=== PATIENT | male | born 1950 | race Caucasian/White ===

== ENCOUNTER 2018-02-15 11:29 | Inpatient (IN) | payer OTHER ==
[2018-02-15] MEDS ORDERED: ACETAMINOPHEN 650 MG SUPP.RECT ONE ×2 (11:49→15:40)
[2018-02-15 12:01] VITALS: BMI 32.5
[2018-02-15 13:11] LABS: BASO % 1.2 % (0-2.0); EOS % 1.4 % (0-4.5); HEMATOCRIT 35.3 % (35.4-49); HEMOGLOBIN 11.5 GM/dL (11.7-16.9); LYMPH % 15.8 % (8-40); MCH 29.3 pg (25.7-33.7); MCHC 32.6 g/dl (32.0-35.9); MEAN CELL VOLUME 89.8 fl (80-96); MEAN PLT VOLUME 8.4 fl (7.5-11.1); MONO % 7.7 % (3.8-10.2); NEUT % 73.9 % (42.8-82.8); PLATELET COUNT 347 K/MM3 (134-434); RBC 3.93 M/mm3 (4.00-5.60); RDW 16.2 % (11.9-15.9); WHITE BLOOD COUNT 16.8 K/mm3 (4.0-10.0)
[2018-02-15 13:17] LABS: URINE APPEARANCE CLOUDY; URINE BILIRUBIN NEGATIVE (<2.0 mg/dL); URINE BLOOD 1+ (NEGATIVE); URINE COLOR DKYELLOW; URINE GLUCOSE (UA) NEGATIVE (NEGATIVE); URINE KETONE NEGATIVE (NEGATIVE); URINE NITRITE NEGATIVE (NEGATIVE)
[2018-02-15 13:21] LABS: EPI CELLS RARE /HPF (FEW); URINE BACTERIA RARE /hpf (NONE SEEN); URINE LEUK ESTERASE 3+ (NEGATIVE); URINE MUCUS RARE; URINE PROTEIN 2+ (NEGATIVE); YEAST FEW
[2018-02-15] MEDS ORDERED: PIPERACILLIN/TAZOB 3.375 GM/50 ML PRE-DOCKED IVPB ONE (13:26)
[2018-02-15 13:27] LABS: VENOUS PH 7.3 (7.32-7.42)
[2018-02-15 13:28] LABS: VENOUS PC02 56.4 mmHg (38-52); VENOUS PO2 39.5 mmHg (28-48)
[2018-02-15] MEDS: VANCOMYCIN 1,500 MG in DEXTROSE 5%-WATER - 500 ML IVPB ONE ×2 (13:28→14:41)
[2018-02-15 13:34] LABS: INR 1.07 (0.82-1.09); PROTHROMBIN TIME (PATIENT) 12.1 SEC (9.98-11.88)
[2018-02-15 13:36] LABS: ACTIVATED PTT 22.8 SECONDS (26.9-34.4)
--- NOTE | 2018-02-15 14:14 | EKG ---
Test Reason : Blood Pressure : / mmHG Vent. Rate : 087 BPM Atrial Rate : 087 BPM P-R Int : 142 ms QRS Dur : 102 ms QT Int : 380 ms P-R-T Axes : 034 -27 018 degrees QTc Int : 457 ms NORMAL SINUS RHYTHM LOW VOLTAGE QRS INFERIOR INFARCT , AGE UNDETERMINED ABNORMAL ECG NO PREVIOUS ECGS AVAILABLE Confirmed by ROSITA LOVE MD ([id number]) on 02/15/2018 2:14:28 PM Referred By: Confirmed By:ROSITA LOVE MD
[2018-02-15 14:30] LABS: ANION GAP 11 (8-16); BILIRUBIN,TOTAL 0.3 mg/dL (0.2-1.0); BLOOD UREA NITROGEN 48 mg/dL (7-18); CALCIUM 8.5 mg/dL (8.5-10.1); CHLORIDE 100 mmol/L (98-107); CO2 29 mmol/L (21-32); CREATININE 0.8 mg/dL (0.7-1.3); GLUCOSE,RANDOM 298 mg/dL (74-106); POTASSIUM 5.1 mmol/L (3.5-5.1); SGOT/AST 132 U/L (15-37); SODIUM 140 mmol/L (136-145); TOT PROT 6.8 g/dl (6.4-8.2)
[2018-02-15 14:39] LABS: ALK PHOS 198 U/L (45-117); SGPT/ALT 113 U/L (12-78)
[2018-02-15] MEDS ORDERED: PIPERACILLIN/TAZOB 3.375 GM 3.375 GM/50 ML BAG IVPB ONE (14:56)
[2018-02-15] MEDS ORDERED: SODIUM CHLORIDE 1,000 ML IV STA (15:20)
[2018-02-15] MEDS ORDERED: ACETAMINOPHEN 650 MG SUPP.RECT PR ONE (15:25)
--- NOTE | 2018-02-15 15:55 | PDOC ---
History of Present Illness - General History Source: Family, Snf Records Exam Limitations: Clinical Condition, Unresponsive <Jose Elias Valerio - Last Filed: 02/15/18 15:51> - General History Source: Family, Snf Records Exam Limitations: Clinical Condition, Unresponsive - History of Present Illness Initial Comments: 02/15/18 16:00 The patient is a 67 year old male with a significant PMH of respiratory failure (s/p trach and vent dependent), CVA, diabetes, HTN, hyperlipidemia, and seizures who presents to the emergency department from [facility] for evaluation of fever. The patient has been in [facility] for the past 3 weeks in the vent unit. The patient is unresponsive at baseline so history is limited. Allergies: NKA Past surgical history: Tracheotomy. Social history: No reported cigarette, alcohol, or drug use. PCP: Dr. Cotton Proxy: Carla Mi <Rashid Wu - Last Filed: 02/15/18 16:18> - General Chief Complaint: Respiratory Stated Complaint: FEVER Time Seen by Provider: 02/15/18 12:48 Past History - Past Medical History CVA: Yes COPD: No Diabetes: Yes GI Disorders: Yes HTN: Yes Hypercholesterolemia: Yes Seizures: Yes Other medical history: respiratory failure/trach/vent dependent - Suicide/Smoking/Psychosocial Hx Smoking History: Unknown if ever smoked <Jose Elias Valerio - Last Filed: 02/15/18 15:51> <Rashid Wu - Last Filed: 02/15/18 16:18> - Past Medical History Allergies/Adverse Reactions: Allergies Allergy/AdvReac Type Severity Reaction Status Date / Time No Known Allergies Allergy Verified 02/15/18 11:55 Home Medications: Ambulatory Orders Albuterol 2.5/Ipratropium 0.5 [Duoneb -] 1 amp IH QID 02/15/18 Insulin Lispro [Humalog] 100 unit SQ BID 02/15/18 Metoprolol Tartrate 12.5 mg GT DAILY 02/15/18 Phenytoin 200 mg GT BID 02/15/18 Review of Systems - Review of Systems Able to Perform ROS?: Yes Comments:: 02/15/18 16:00 GENERAL/CONSTITUTIONAL: (+) Fever. No chills. No weakness. HEAD, EYES, EARS, NOSE AND THROAT: No change in vision. No ear pain or discharge. No sore throat. CARDIOVASCULAR: No chest pain or shortness of breath. RESPIRATORY: No cough, wheezing, or hemoptysis. GASTROINTESTINAL: No nausea, vomiting, diarrhea or constipation. GENITOURINARY: No dysuria, frequency, or change in urination. MUSCULOSKELETAL: No joint or muscle swelling or pain. No neck or back pain. SKIN: No rash NEUROLOGIC: No headache, vertigo, loss of consciousness, or change in strength/ sensation. ENDOCRINE: No increased thirst. No abnormal weight change. HEMATOLOGIC/LYMPHATIC: No anemia, easy bleeding, or history of blood clots. ALLERGIC/IMMUNOLOGIC: No hives or skin allergy. <Rashid Wu - Last Filed: 02/15/18 16:18> *Physical Exam - Vital Signs Last Vital Signs Temp Pulse Resp BP Pulse Ox 102.4 F H 92 H 18 144/81 100 02/15/18 11:35 02/15/18 14:30 02/15/18 14:50 02/15/18 14:30 02/15/18 14:30 - Physical Exam Comments: 02/15/18 15:51 EXAMINATION CONSTITUTIONAL: Unresponsive, GCS-3; HEAD: Normocephalic; atraumatic EYES: Pupils are 2 mm, round, nonreactive bilaterally; ENMT: mm-dry; tongue-coated NECK: Supple; non-tender; no JVD CARD: Normal S1, S2; no murmurs, rubs, or gallops RESP: Normal chest excursion with respiration; breath sounds clear and equal bilaterally; no wheezes, rhonchi, or rales ABD: Soft, non-distended; non-tender; no palpable organomegaly, no palpable hernias; + feeding tube in the left upper quadrant; EXT: No deformity, no edema; distal pulses decreased at the DP/TP bilaterally; SKIN: Warm, dry, + approximately 2 cm hemorrhagic blister to the left axilla; + also noted stage I pressure ulcer to the right scapula; NEURO: Unresponsive, GCS-3 <Jose Elias Valerio - Last Filed: 02/15/18 15:51> - Vital Signs Last Vital Signs Temp Pulse Resp BP Pulse Ox 102.4 F H 92 H 18 144/81 100 02/15/18 11:35 02/15/18 14:30 02/15/18 14:50 02/15/18 14:30 02/15/18 14:30 <Rashid Wu - Last Filed: 02/15/18 16:18> Heart Score/ECG Review #1 02/15/18 16:18 Vent rate 87 bpm Normal sinus rhtyhm Low voltage QRS Inferior infarct, age undetermined Abnormal ECG <Rashid Wu - Last Filed: 02/15/18 16:18> ED Treatment Course - LABORATORY CBC & Chemistry Diagram: 02/15/18 12:30 02/15/18 13:56 - ADDITIONAL ORDERS Additional order review: Laboratory Results 02/15/18 02/15/18 02/15/18 13:56 13:56 13:42 PT with INR INR PTT (Actin FS) VBG pH POC VBG pCO2 POC VBG pO2 Mixed VBG HCO3 Sodium 140 Potassium 5.1 Chloride 100 Carbon Dioxide 29 Anion Gap 11 BUN 48 H Creatinine 0.8 Creat Clearance w eGFR > 60 Random Glucose 298 H Lactic Acid Calcium 8.5 Total Bilirubin 0.3 AST 132 H ALT 113 H Alkaline Phosphatase 198 H Creatine Kinase 158 Creatine Kinase Index 0.6 CK-MB (CK-2) < 1.000 Troponin I 0.02 Total Protein 6.8 Albumin 2.0 L Urine Color Urine Appearance Urine pH Ur Specific Melrose Urine Protein Urine Glucose (UA) Urine Ketones Urine Blood Urine Nitrite Urine Bilirubin Urine Urobilinogen Ur Leukocyte Esterase Urine WBC (Auto) Urine RBC (Auto) Ur Epithelial Cells Urine Bacteria Urine Mucus Urine Yeast Phenytoin 18.0 02/15/18 02/15/18 02/15/18 12:56 12:56 12:55 PT with INR 12.10 H INR 1.07 PTT (Actin FS) 22.8 L VBG pH 7.30 L POC VBG pCO2 56.4 H POC VBG pO2 39.5 Mixed VBG HCO3 26.7 H Sodium Potassium Chloride Carbon Dioxide Anion Gap BUN Creatinine Creat Clearance w eGFR Random Glucose Lactic Acid Calcium Total Bilirubin AST ALT Alkaline Phosphatase Creatine Kinase Creatine Kinase Index CK-MB (CK-2) Troponin I Total Protein Albumin Urine Color Dkyellow Urine Appearance Cloudy Urine pH 5.0 Ur Specific Melrose 1.021 Urine Protein 2+ H Urine Glucose (UA) Negative Urine Ketones Negative Urine Blood 1+ H Urine Nitrite Negative Urine Bilirubin Negative Urine Urobilinogen 2.0 Ur Leukocyte Esterase 3+ H Urine WBC (Auto) 654 Urine RBC (Auto) 15 Ur Epithelial Cells Rare Urine Bacteria Rare Urine Mucus Rare Urine Yeast Few Phenytoin 02/15/18 02/15/18 02/15/18 12:30 12:30 12:30 PT with INR INR PTT (Actin FS) VBG pH POC VBG pCO2 POC VBG pO2 Mixed VBG HCO3 Sodium Cancelled Potassium Cancelled Chloride Cancelled Carbon Dioxide Cancelled Anion Gap Cancelled BUN Cancelled Creatinine Cancelled Creat Clearance w eGFR Cancelled Random Glucose Cancelled Lactic Acid 2.3 H* Calcium Cancelled Total Bilirubin Cancelled AST Cancelled ALT Cancelled Alkaline Phosphatase Cancelled Creatine Kinase Creatine Kinase Index CK-MB (CK-2) Troponin I Cancelled Cancelled Total Protein Cancelled Albumin Cancelled Urine Color Urine Appearance Urine pH Ur Specific Melrose Urine Protein Urine Glucose (UA) Urine Ketones Urine Blood Urine Nitrite Urine Bilirubin Urine Urobilinogen Ur Leukocyte Esterase Urine WBC (Auto) Urine RBC (Auto) Ur Epithelial Cells Urine Bacteria Urine Mucus Urine Yeast Phenytoin 02/15/18 13:42 Gram Stain - Final Sputum - Endotrachea Suction/Ventilator 02/15/18 12:30 RBC 3.93 L MCV 89.8 MCHC 32.6 RDW 16.2 H MPV 8.4 Neutrophils % 73.9 Lymphocytes % 15.8 Monocytes % 7.7 Eosinophils % 1.4 Basophils % 1.2 - RADIOLOGY Radiology Studies Ordered: Category Date Time Status CHEST X-RAY PORTABLE* [RAD] Stat Radiology 02/15/18 12:56 Completed ABDOMEN US -LIMITED [US] Stat Ultrasound 02/15/18 15:21 Ordered - Medications Given in the ED: ED Medications Discontinued Medications Generic Name Dose Route Start Last Admin Trade Name Freq PRN Reason Stop Dose Admin Acetaminophen 650 mg 02/15/18 15:25 02/15/18 15:37 Tylenol Suppository - SC 02/15/18 15:26 650 mg ONCE ONE Administration Vancomycin HCl 1,500 mg/ 500 mls @ 250 mls/hr 02/15/18 13:26 02/15/18 14:41 Dextrose IVPB 02/15/18 15:25 250 mls/hr ONCE ONE Administration Protocol Piperacillin Sod/Tazobactam Sod 3.375 gm 02/15/18 13:26 02/15/18 14:54 Zosyn 3.375gm Ivpb (Pre-Docked) IVPB 02/15/18 13:27 3.375 gm ONCE ONE Administration <Jose Elias Valerio - Last Filed: 02/15/18 15:51> - LABORATORY CBC & Chemistry Diagram: 02/15/18 12:30 02/15/18 13:56 - ADDITIONAL ORDERS Additional order review: Laboratory Results 02/15/18 02/15/18 02/15/18 13:56 13:56 13:42 PT with INR INR PTT (Actin FS) VBG pH POC VBG pCO2 POC VBG pO2 Mixed VBG HCO3 Sodium 140 Potassium 5.1 Chloride 100 Carbon Dioxide 29 Anion Gap 11 BUN 48 H Creatinine 0.8 Creat Clearance w eGFR > 60 Random Glucose 298 H Lactic Acid Calcium 8.5 Total Bilirubin 0.3 AST 132 H ALT 113 H Alkaline Phosphatase 198 H Creatine Kinase 158 Creatine Kinase Index 0.6 CK-MB (CK-2) < 1.000 Troponin I 0.02 Total Protein 6.8 Albumin 2.0 L Urine Color Urine Appearance Urine pH Ur Specific Melrose Urine Protein Urine Glucose (UA) Urine Ketones Urine Blood Urine Nitrite Urine Bilirubin Urine Urobilinogen Ur Leukocyte Esterase Urine WBC (Auto) Urine RBC (Auto) Ur Epithelial Cells Urine Bacteria Urine Mucus Urine Yeast Phenytoin 18.0 02/15/18 02/15/18 02/15/18 12:56 12:56 12:55 PT with INR 12.10 H INR 1.07 PTT (Actin FS) 22.8 L VBG pH 7.30 L POC VBG pCO2 56.4 H POC VBG pO2 39.5 Mixed VBG HCO3 26.7 H Sodium Potassium Chloride Carbon Dioxide Anion Gap BUN Creatinine Creat Clearance w eGFR Random Glucose Lactic Acid Calcium Total Bilirubin AST ALT Alkaline Phosphatase Creatine Kinase Creatine Kinase Index CK-MB (CK-2) Troponin I Total Protein Albumin Urine Color Dkyellow Urine Appearance Cloudy Urine pH 5.0 Ur Specific Melrose 1.021 Urine Protein 2+ H Urine Glucose (UA) Negative Urine Ketones Negative Urine Blood 1+ H Urine Nitrite Negative Urine Bilirubin Negative Urine Urobilinogen 2.0 Ur Leukocyte Esterase 3+ H Urine WBC (Auto) 654 Urine RBC (Auto) 15 Ur Epithelial Cells Rare Urine Bacteria Rare Urine Mucus Rare Urine Yeast Few Phenytoin 02/15/18 02/15/18 02/15/18 12:30 12:30 12:30 PT with INR INR PTT (Actin FS) VBG pH POC VBG pCO2 POC VBG pO2 Mixed VBG HCO3 Sodium Cancelled Potassium Cancelled Chloride Cancelled Carbon Dioxide Cancelled Anion Gap Cancelled BUN Cancelled Creatinine Cancelled Creat Clearance w eGFR Cancelled Random Glucose Cancelled Lactic Acid 2.3 H* Calcium Cancelled Total Bilirubin Cancelled AST Cancelled ALT Cancelled Alkaline Phosphatase Cancelled Creatine Kinase Creatine Kinase Index CK-MB (CK-2) Troponin I Cancelled Cancelled Total Protein Cancelled Albumin Cancelled Urine Color Urine Appearance Urine pH Ur Specific Melrose Urine Protein Urine Glucose (UA) Urine Ketones Urine Blood Urine Nitrite Urine Bilirubin Urine Urobilinogen Ur Leukocyte Esterase Urine WBC (Auto) Urine RBC (Auto) Ur Epithelial Cells Urine Bacteria Urine Mucus Urine Yeast Phenytoin 02/15/18 13:42 Gram Stain - Final Sputum - Endotrachea Suction/Ventilator 02/15/18 12:30 RBC 3.93 L MCV 89.8 MCHC 32.6 RDW 16.2 H MPV 8.4 Neutrophils % 73.9 Lymphocytes % 15.8 Monocytes % 7.7 Eosinophils % 1.4 Basophils % 1.2 - Medications Given in the ED: ED Medications Discontinued Medications Generic Name Dose Route Start Last Admin Trade Name Freq PRN Reason Stop Dose Admin Acetaminophen 650 mg 02/15/18 15:25 02/15/18 15:37 Tylenol Suppository - SC 02/15/18 15:26 650 mg ONCE ONE Administration Vancomycin HCl 1,500 mg/ 500 mls @ 250 mls/hr 02/15/18 13:26 02/15/18 14:41 Dextrose IVPB 02/15/18 15:25 250 mls/hr ONCE ONE Administration Protocol Piperacillin Sod/Tazobactam Sod 3.375 gm 02/15/18 13:26 02/15/18 14:54 Zosyn 3.375gm Ivpb (Pre-Docked) IVPB 02/15/18 13:27 3.375 gm ONCE ONE Administration <Rashid Wu - Last Filed: 02/15/18 16:18> Medical Decision Making - Medical Decision Making 02/15/18 15:54 Patient is a frail-appearing 67-year-old male, with history of anoxic encephalopathy, vented and trached who presents with fever and increased tracheal secretions. Patient is hemodynamically stable. Will neal culture. We'll administer broad-spectrum antibiotics. We'll administer antipyretics and IV fluids. Will obtain right upper quadrant ultrasound to evaluate for abnormal LFTs. Will admit with pulmonary consult. <Jose Elias Valerio - Last Filed: 02/15/18 15:51> *DC/Admit/Observation/Transfer - Discharge Dispostion Admit: Yes <Jose Elias Valerio - Last Filed: 02/15/18 15:51> - Attestations Scribe Attestion: 02/15/18 16:00 Documentation prepared by Rashid Wu, acting as medical recruiter for Jose Elias Valerio MD. <Rashid Wu - Last Filed: 02/15/18 16:18> Diagnosis at time of Disposition: Urinary tract bacterial infections, Abnormal LFTs Pneumonia Qualifiers: Pneumonia type: due to unspecified organism Laterality: bilateral Lung location : unspecified part of lung Qualified Code(s): J18.9 - Pneumonia, unspecified organism - Discharge Dispostion Condition at time of disposition: Fair
[2018-02-15] MEDS: ALBUTEROL SO4 2.5/IPRATROPIUM 0.5 INH SOL 3 ML VIAL.NEB. NEB SCH (20:50)
[2018-02-15] MEDS: SODIUM CHLORIDE 0.45% 1,000 ML IV SCH (21:02)
[2018-02-15] MEDS: INSULIN SLIDING SCALE (NOVOLOG) 1 VIAL SQ SCH (21:21)
[2018-02-15] MEDS: HEPARIN NA (PORCINE) 5,000 UNITS/ML 1ML VIAL SQ SCH (21:21)
[2018-02-15] MEDS: PHENYTOIN 100 MG/4 ML U-D CUP GT SCH (22:51)
[2018-02-16] MEDS ORDERED: ACETAMINOPHEN 325 MG TABLET (FP) PO ONE (05:43)
[2018-02-16] MEDS ORDERED: ACETAMINOPHEN 650 MG SUPP.RECT PR ONE (05:49)
[2018-02-16] MEDS: INSULIN SLIDING SCALE (NOVOLOG) 1 VIAL SQ SCH ×4 (06:10→22:54)
[2018-02-16] MEDS: ALBUTEROL SO4 2.5/IPRATROPIUM 0.5 INH SOL 3 ML VIAL.NEB. NEB SCH ×4 (07:40→20:45)
[2018-02-16 07:51] LABS: BASO % 0.7 % (0-2.0); EOS % 1.6 % (0-4.5); HEMATOCRIT 27.4 % (35.4-49); LYMPH % 11.8 % (8-40); MCH 29.8 pg (25.7-33.7); MEAN CELL VOLUME 90.4 fl (80-96); MEAN PLT VOLUME 8.4 fl (7.5-11.1); MONO % 7.6 % (3.8-10.2); NEUT % 78.3 % (42.8-82.8); PLATELET COUNT 304 K/MM3 (134-434); RBC 3.03 M/mm3 (4.00-5.60); RDW 16.2 % (11.9-15.9); WHITE BLOOD COUNT 18.9 K/mm3 (4.0-10.0)
[2018-02-16 08:05] LABS: ALBUMIN 1.7 g/dl (3.4-5.0); ANION GAP 5 (8-16); BLOOD UREA NITROGEN 45 mg/dL (7-18); CALCIUM 7.2 mg/dL (8.5-10.1); CHLORIDE 104 mmol/L (98-107); CO2 28 mmol/L (21-32); CREATININE 0.7 mg/dL (0.7-1.3); GLUCOSE,RANDOM 225 mg/dL (74-106); MAGNESIUM 2.8 mg/dL (1.8-2.4); PHOSPHOROUS 3.9 mg/dL (2.5-4.9); POTASSIUM 4.5 mmol/L (3.5-5.1); SGOT/AST 90 U/L (15-37); SGPT/ALT 85 U/L (12-78); SODIUM 137 mmol/L (136-145)
[2018-02-16 08:09] LABS: ALK PHOS 155 U/L (45-117); BILIRUBIN,TOTAL 0.2 mg/dL (0.2-1.0); TOT PROT 5.8 g/dl (6.4-8.2)
[2018-02-16] MEDS ORDERED: PT OWN MED DRAWER 7, Y5N ONE ×4 (08:11→21:23)
--- NOTE | 2018-02-16 08:31 | PN ---
Progress Note, Physician Chief Complaint: ID Full consult dictated - Current Medication List Current Medications: Active Medications Albuterol/Ipratropium (Duoneb -) 1 amp NEB RQID [facility] Last Admin: 02/15/18 20:50 Dose: 1 amp Heparin Sodium (Porcine) (Heparin -) 5,000 unit SQ BID [facility] Last Admin: 02/15/18 21:21 Dose: 5,000 unit Sodium Chloride (1/2 Normal Saline) 1,000 mls @ 75 mls/hr IV ASDIR [facility] Last Admin: 02/15/18 21:02 Dose: 75 mls/hr Insulin Aspart (Novolog Vial Sliding Scale -) 1 vial SQ ACHS [facility] PRN Reason: Protocol Last Admin: 02/16/18 06:10 Dose: 5 units Metoprolol Tartrate (Lopressor -) 12.5 mg GT DAILY [facility] Phenytoin Sodium (Dilantin Oral Suspension -) 200 mg GT BID [facility] Last Admin: 02/15/18 22:51 Dose: 200 mg - Objective Vital Signs: Vital Signs Temperature 100.4 F H 02/16/18 07:42 Pulse Rate 88 02/16/18 06:00 Respiratory Rate 16 02/16/18 06:00 Blood Pressure 151/76 02/16/18 06:00 O2 Sat by Pulse Oximetry (%) 98 02/15/18 15:55 Constitutional: Yes: Other (Vent dependent) Neck: Yes: Other (Trach) Cardiovascular: Yes: S1, S2 Respiratory: Yes: WNL, Regular, CTA Bilaterally Gastrointestinal: Yes: Soft. No: Tenderness Genitourinary: Yes: Other (Gold) Edema: Yes (anasarca) Labs: CBC, BMP 02/16/18 07:25 02/16/18 07:25 INR, PTT INR 1.07 (0.82-1.09) 02/15/18 12:55 Problem List - Problems (1) UTI (urinary tract infection) Code(s): N39.0 - URINARY TRACT INFECTION, SITE NOT SPECIFIED (2) Abnormal LFTs Code(s): R94.5 - ABNORMAL RESULTS OF LIVER FUNCTION STUDIES (3) Fever Code(s): R50.9 - FEVER, UNSPECIFIED (4) Respiratory failure Code(s): J96.90 - RESPIRATORY FAILURE, UNSP, UNSP W HYPOXIA OR HYPERCAPNIA Assessment/Plan Microbiology 02/15/18 13:42 Sputum - Endotrachea Suction/Ventilator Gram Stain - Final Laboratory Tests 02/15/18 02/15/18 02/15/18 12:30 12:55 12:56 WBC 16.8 H Hgb 11.5 L Hct 35.3 L Plt Count 347 INR 1.07 BUN Creatinine Random Glucose Lactic Acid Total Bilirubin AST ALT Alkaline Phosphatase Ur Leukocyte Esterase 3+ H 02/15/18 02/15/18 02/16/18 13:56 19:30 07:25 WBC 18.9 H Hgb 9.0 L D Hct Plt Count 304 INR BUN 48 H Creatinine 0.8 Random Glucose 298 H Lactic Acid 1.7 Total Bilirubin 0.3 AST 132 H ALT Alkaline Phosphatase 198 H Ur Leukocyte Esterase 02/16/18 07:25 WBC Hgb Hct Plt Count INR BUN Creatinine Random Glucose Lactic Acid Total Bilirubin 0.2 D AST 90 H D ALT 85 H D Alkaline Phosphatase 155 H D Ur Leukocyte Esterase Assessment Fever with urinary tract infection Must consider possibility he might have passes a stone and or ? cholecysititis Respiratory failure Plan Ceftriaxone 1 gram daily Panculture HIDA scan
--- NOTE | 2018-02-16 09:22 | CONS ---
DATE OF CONSULTATION: DATE OF DICTATION: 02/16/2018 INFECTIOUS DISEASE CONSULTATION HISTORY OF PRESENT ILLNESS: This is a 67-year-old male from a longterm with tracheostomy and chronic ventilatory failure. I am asked to see him for evaluation of fever noted at the longterm. He has been on the ventilator unit in [facility] for about 3 weeks and is unresponsive, perhaps as a result of a prior CVA, indicated in his past medical history. PAST MEDICAL HISTORY: Status post CVA, ventilatory dependency, hypertension, hyperlipidemia and seizure disorder. MEDICATIONS: Albuterol, insulin, metoprolol, Dilantin. ALLERGIES: None known. SOCIAL HISTORY: No reported cigarette, alcohol or drug use. HIV status unknown. FAMILY HISTORY: Unobtainable. REVIEW OF SYSTEMS: Respiratory: Chronic ventilatory failure with tracheostomy. Cardiac: No history of chest pain, heart murmur, syncope. Gastrointestinal: No bleeding per rectum, diarrhea, vomiting. Genitourinary: Incontinent of urine. PHYSICAL EXAMINATION: General: The patient was unresponsive. Vital Signs: His temperature on admission was 102.4 and currently 100.4. Pulse 88, blood pressure 150/76, respirations 16. Neck: Supple, with a tracheostomy. Lungs: Bilateral breath sounds. No wheezing or rhonchi. Heart: S1, S2. Regular rhythm. No murmur, rub or gallop. Abdomen: Soft, nontender. No palpable organomegaly. PEG feeding tube. Extremities: Edema of the upper arms. Skin: Stage 1 pressure ulcer right scapula. A 2-cm hemorrhagic blister left axilla. DIAGNOSTIC STUDIES: White count 16.8, 18.9; hemoglobin 9.0; platelets 304; normal differential blood count. INR 1.07, BUN 45, creatinine 0.7, bilirubin 0.1. AST on admission 132, ALT 113, alkaline phosphatase 198. Chest x-ray was reviewed. It shows a tracheostomy with no clear-cut infiltrate seen. Ultrasound, limited study but shows a slightly thick-walled gallbladder with multiple stones. ASSESSMENT: A 67-year-old man with history of a stroke and chronic ventilatory failure, presents for evaluation of fever. Likely source includes the urinary tract. Additionally, elevated liver enzymes noted on admission, with a sonogram showing diffuse fatty infiltration. A secondary possibility includes cholecystitis and whether or not he could have passed a gallstone. RECOMMENDATIONS: For now, we will focus on treatment of the urinary tract with cefepime 2 g q.8 hours, pending blood and urine cultures. We will obtain a HIDA scan for possible cholecystitis. CHLOE NUNEZ M.D. [id number]
[2018-02-16] MEDS: METOPROLOL TARTRATE 25 MG TABLET (FP) GT SCH (09:35)
[2018-02-16] MEDS: HEPARIN NA (PORCINE) 5,000 UNITS/ML 1ML VIAL SQ SCH ×2 (09:38→21:58)
[2018-02-16] MEDS: CEFEPIME 2 GM in DEXTROSE 5%-WATER - 100 ML IVPB SCH ×2 (09:38→17:55)
[2018-02-16] MEDS: PHENYTOIN 100 MG/4 ML U-D CUP GT SCH ×2 (09:53→21:59)
[2018-02-16] MEDS: SODIUM CHLORIDE 0.45% 1,000 ML IV SCH (09:53)
[2018-02-16] MEDS ORDERED: CEFTRIAXONE 1 GM in DEXTROSE 5%-WATER - 50 ML IVPB SCH (10:00)
--- NOTE | 2018-02-16 10:52 | HP ---
Admitting History and Physical - Primary Care Physician PCP: Lisette Nettles - Admission Chief Complaint: FEVER/LETHARGY History of Present Illness: CHRONICALLY ILL PATIENT SENT FROM [facility] WITH FEVER/LETHARGY ON TRACH/VENT DEPENDENT. 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: CVA Pulmonary: Yes: O2 Dependent, Other - Smoking History Smoking history: Unknown if ever smoked Have you smoked in the past 12 months: No Home Medications - Allergies Allergies/Adverse Reactions: Allergies Allergy/AdvReac Type Severity Reaction Status Date / Time No Known Allergies Allergy Verified 02/15/18 11:55 - Home Medications Home Medications: Ambulatory Orders Albuterol 2.5/Ipratropium 0.5 [Duoneb -] 1 amp IH QID 02/15/18 Insulin Lispro [Humalog] 100 unit SQ BID 02/15/18 Metoprolol Tartrate 12.5 mg GT DAILY 02/15/18 Phenytoin 200 mg GT BID 02/15/18 Review of Systems - Review of Systems Constitutional: reports: Lethargy, Weakness Eyes: reports: No Symptoms HENT: reports: No Symptoms Neck: reports: No Symptoms Cardiovascular: reports: No Symptoms Respiratory: reports: Other Gastrointestinal: reports: No Symptoms Genitourinary: reports: Other Musculoskeletal: reports: Muscle Weakness Integumentary: reports: Other Neurological: reports: Pre-Existing Deficit, Weakness Endocrine: reports: Other Hematology/Lymphatic: reports: Other Psychiatric: reports: Other Physical Examination Vital Signs: Vital Signs Temperature 100.4 F H 02/16/18 07:42 Pulse Rate 88 02/16/18 06:00 Respiratory Rate 17 02/16/18 07:37 Blood Pressure 151/76 02/16/18 06:00 O2 Sat by Pulse Oximetry (%) 98 02/15/18 15:55 Constitutional: Yes: Moderate Distress Eyes: Yes: WNL HENT: Yes: WNL Neck: Yes: WNL Cardiovascular: Yes: WNL Respiratory: Yes: Mechanically Ventilated (TRACHEOSTOMY) Gastrointestinal: Yes: Other Renal/: Yes: Jackman Present Musculoskeletal: Yes: Muscle Weakness Extremities: Yes: WNL Edema: No Peripheral Pulses WNL: Yes Integumentary: Yes: WNL Wound/Incision: Yes: Clean/Dry Neurological: Yes: Pre-Existing Deficit, Weakness ...Motor Strength: LLE, RLE Psychiatric: Yes: Other Labs: CBC, BMP 02/16/18 07:25 02/16/18 07:25 Problem List - Problems (1) Abnormal LFTs Code(s): R94.5 - ABNORMAL RESULTS OF LIVER FUNCTION STUDIES (2) Fever Code(s): R50.9 - FEVER, UNSPECIFIED (3) Pneumonia Code(s): J18.9 - PNEUMONIA, UNSPECIFIED ORGANISM Qualifiers: Pneumonia type: due to unspecified organism Laterality: bilateral Lung location: unspecified part of lung Qualified Code(s): J18.9 - Pneumonia, unspecified organism (4) Respiratory failure Code(s): J96.90 - RESPIRATORY FAILURE, UNSP, UNSP W HYPOXIA OR HYPERCAPNIA Assessment/Plan IV ABX CULTURES ID AND PULM EVAL VENT SUPPORT 35% JACKMAN CHECK CX DVT PROPHYLAXIS
[2018-02-16] MEDS ORDERED: INSULIN (NOVOLOG) ASPART 100 UNITS/ML 10ML VIAL ONE (11:55)
--- NOTE | 2018-02-16 12:35 | CON.PULM ---
Consult Consult Specialty:: PULM/CCM Referred by:: LAZARUS - History of Present Illness Chief Complaint: FEVER History of Present Illness: 67 M, chronic respiratory failure (Trach / Vent dependent), CVA, DM, HTN, hyperlipidemia, and seizures. Ad[facility] via the ER from the [facility] due to fever. Patient is nota able to provide history. CXR: Multilobar infiltrates that are likely a combination of PNA/atelectasis/ effusions. Seen by ID and started on broad spectrum ABX. - History Source History Provided By: Medical Record Limitations to Obtaining History: Unresponsive - Past Medical History CV TECH: Yes: CVA Pulmonary: Yes: O2 Dependent, Other - Smoking History Smoking history: Unknown if ever smoked Have you smoked in the past 12 months: No Home Medications - Allergies Allergies/Adverse Reactions: Allergies Allergy/AdvReac Type Severity Reaction Status Date / Time No Known Allergies Allergy Verified 02/15/18 11:55 - Home Medications Home Medications: Ambulatory Orders Albuterol 2.5/Ipratropium 0.5 [Duoneb -] 1 amp IH QID 02/15/18 Insulin Lispro [Humalog] 100 unit SQ BID 02/15/18 Metoprolol Tartrate 12.5 mg GT DAILY 02/15/18 Phenytoin 200 mg GT BID 02/15/18 Review of Systems Unable to obtain ROS, reason: not able to provide Physical Exam Vital Sings: Vital Signs Temperature 100.4 F H 02/16/18 07:42 Pulse Rate 88 02/16/18 06:00 Respiratory Rate 18 02/16/18 11:47 Blood Pressure 151/76 02/16/18 06:00 O2 Sat by Pulse Oximetry (%) 98 02/15/18 15:55 Constitutional: Yes: No Distress, Obese, Other (Mechanically ventilated) Eyes: Yes: Conjunctiva Clear HENT: Yes: Atraumatic, Normocephalic Neck: Yes: Other (Trachesotomy intact ) Cardiovascular: Yes: Regular Rate and Rhythm Respiratory: Yes: Mechanically Ventilated, Rhonchi. No: Rales, Stridor, Wheezes ...Inspection: Yes: WNL ...Clubbing: No Gastrointestinal: Yes: Normal Bowel Sounds, Soft, Other (PEG ) Musculoskeletal: Yes: WNL Extremities: Yes: WNL Edema: No Peripheral Pulses WNL: Yes Integumentary: Yes: WNL Neurological: Yes: Unresponsive Labs: CBC, BMP 02/16/18 07:25 02/16/18 07:25 Imaging - Results Chest X-ray: Report Reviewed, Image Reviewed Problem List - Problems (1) Abnormal LFTs Code(s): R94.5 - ABNORMAL RESULTS OF LIVER FUNCTION STUDIES (2) Fever Code(s): R50.9 - FEVER, UNSPECIFIED (3) Pneumonia Code(s): J18.9 - PNEUMONIA, UNSPECIFIED ORGANISM Qualifiers: Pneumonia type: due to unspecified organism Laterality: bilateral Lung location: unspecified part of lung Qualified Code(s): J18.9 - Pneumonia, unspecified organism (4) Respiratory failure Code(s): J96.90 - RESPIRATORY FAILURE, UNSP, UNSP W HYPOXIA OR HYPERCAPNIA Assessment/Plan ABX per ID AC Mode of vent Biswas-culture including Sputum VTE prophylaxis Not a candidate for wean Will repeat CXR in a few days. (Do not feel CT is needed at this time) Will follow. Thank you. Dr Dodd
[2018-02-16] MEDS: ACETAMINOPHEN 650 MG/20.3 ML ORAL SOLUTION (CUPS) PO PRN (13:31)
[2018-02-17] MEDS ORDERED: PT OWN MED DRAWER 7, Y5N ONE ×3 (01:51→17:18)
[2018-02-17] MEDS: SODIUM CHLORIDE 0.45% 1,000 ML IV SCH ×2 (01:57→20:40)
[2018-02-17] MEDS: CEFEPIME 2 GM in DEXTROSE 5%-WATER - 100 ML IVPB SCH ×3 (01:57→17:35)
[2018-02-17] MEDS: INSULIN SLIDING SCALE (NOVOLOG) 1 VIAL SQ SCH ×4 (07:31→21:19)
[2018-02-17] MEDS: ALBUTEROL SO4 2.5/IPRATROPIUM 0.5 INH SOL 3 ML VIAL.NEB. NEB SCH ×4 (08:04→21:30)
[2018-02-17 08:30] LABS: ALBUMIN 1.7 g/dl (3.4-5.0); ALK PHOS 154 U/L (45-117); ANION GAP 13 (8-16); BILIRUBIN,TOTAL 0.5 mg/dL (0.2-1.0); BLOOD UREA NITROGEN 42 mg/dL (7-18); CALCIUM 7.9 mg/dL (8.5-10.1); CHLORIDE 102 mmol/L (98-107); CO2 24 mmol/L (21-32); CREATININE 0.6 mg/dL (0.7-1.3); GLUCOSE,RANDOM 181 mg/dL (74-106); SGPT/ALT 81 U/L (12-78); SODIUM 139 mmol/L (136-145); TOT PROT 6.1 g/dl (6.4-8.2)
[2018-02-17 08:42] LABS: POTASSIUM 5.2 mmol/L (3.5-5.1); SGOT/AST 119 U/L (15-37)
[2018-02-17 10:37] LABS: HEMATOCRIT 24.8 % (35.4-49); HEMOGLOBIN 8.2 GM/dL (11.7-16.9); MCH 29.5 pg (25.7-33.7); MCHC 33.1 g/dl (32.0-35.9); MEAN CELL VOLUME 89.4 fl (80-96); MEAN PLT VOLUME 7.6 fl (7.5-11.1); PLATELET COUNT 283 K/MM3 (134-434); RBC 2.77 M/mm3 (4.00-5.60); RDW 15.5 % (11.9-15.9); WHITE BLOOD COUNT 16.2 K/mm3 (4.0-10.0)
--- NOTE | 2018-02-17 10:38 | PN ---
Progress Note, Physician Chief Complaint: AWAKE APHASIA TRACH - Current Medication List Current Medications: Active Medications Acetaminophen (Tylenol Oral Solution -) 650 mg PO Q6H PRN PRN Reason: FEVER Last Admin: 02/16/18 13:31 Dose: 650 mg Albuterol/Ipratropium (Duoneb -) 1 amp NEB RQID [facility] Last Admin: 02/17/18 08:04 Dose: 1 amp Heparin Sodium (Porcine) (Heparin -) 5,000 unit SQ BID [facility] Last Admin: 02/16/18 21:58 Dose: 5,000 unit Sodium Chloride (1/2 Normal Saline) 1,000 mls @ 75 mls/hr IV ASDIR [facility] Last Admin: 02/17/18 01:57 Dose: 75 mls/hr Cefepime HCl 2 gm/ Dextrose 100 mls @ 200 mls/hr IVPB Q8H-IV [facility] PRN Reason: Protocol Last Admin: 02/17/18 01:57 Dose: 200 mls/hr Insulin Aspart (Novolog Vial Sliding Scale -) 1 vial SQ ACHS [facility] PRN Reason: Protocol Last Admin: 02/17/18 07:31 Dose: Not Given Metoprolol Tartrate (Lopressor -) 12.5 mg GT DAILY [facility] Last Admin: 02/16/18 09:35 Dose: 12.5 mg Phenytoin Sodium (Dilantin Oral Suspension -) 200 mg GT BID [facility] Last Admin: 02/16/18 21:59 Dose: 200 mg - Objective Vital Signs: Vital Signs Temperature 99.6 F 02/17/18 07:32 Pulse Rate 78 02/17/18 07:32 Respiratory Rate 16 02/17/18 07:32 Blood Pressure 130/68 02/17/18 07:32 O2 Sat by Pulse Oximetry (%) 100 02/16/18 21:00 Constitutional: Yes: Mild Distress Eyes: Yes: WNL HENT: Yes: WNL Neck: Yes: WNL Cardiovascular: Yes: WNL Respiratory: Yes: Mechanically Ventilated, Other (TRACHEOSTOMY) Gastrointestinal: Yes: Distention, Tenderness ...Rectal Exam: Yes: Other Genitourinary: Yes: Gold Present Musculoskeletal: Yes: Muscle Weakness Extremities: Yes: Other Edema: Yes Edema: LLE: Trace, RLE: Trace Peripheral Pulses WNL: Yes Integumentary: Yes: Other Wound/Incision: Yes: Dressing Dry and Intact, Other Neurological: Yes: Confusion, Pre-Existing Deficit, Unresponsive, Unsteady Gait , Weakness ...Motor Strength: LLE, RLE Psychiatric: Yes: Other Labs: CBC, BMP 02/17/18 07:00 INR, PTT INR 1.07 (0.82-1.09) 02/15/18 12:55 Problem List - Problems (1) Abnormal LFTs Code(s): R94.5 - ABNORMAL RESULTS OF LIVER FUNCTION STUDIES (2) Fever Code(s): R50.9 - FEVER, UNSPECIFIED (3) Pneumonia Code(s): J18.9 - PNEUMONIA, UNSPECIFIED ORGANISM Qualifiers: Pneumonia type: due to unspecified organism Laterality: bilateral Lung location: unspecified part of lung Qualified Code(s): J18.9 - Pneumonia, unspecified organism (4) Respiratory failure Code(s): J96.90 - RESPIRATORY FAILURE, UNSP, UNSP W HYPOXIA OR HYPERCAPNIA Assessment/Plan NPO GI WORKUP IN PROGRESS GI/ID CONSULTS APPRECIATED TRACH/VET SUPPORT CONTINUED IV ABX LFT TRANSAMINITIS LIKELY GALLBLADDER INFECTION/OBSTRUCTION IVF PPI PAIN CONTROL
--- NOTE | 2018-02-17 11:04 | CON.GI ---
Consult Consult Specialty:: GI Reason for Consultation:: elevated lier enzymes - History of Present Illness History of Present Illness: chart reviewed. Events noted 67M, chronic respiratory failure (Trach / Vent dependent), CVA, DM, HTN, hyperlipidemia, and seizures. Admitted via the ER from the SNF due to fever, increased tracheal secretions and possible UTI. CXR revealed multilobar infiltrates. On broad spectrum antibiotics. Noted to have mild cholestasis and transaminitis. Takes Dilantin among other medications. The patient is non-verbal. Hx from medical records. 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 Pulmonary: Yes: O2 Dependent, Other - Smoking History Smoking history: Unknown if ever smoked Have you smoked in the past 12 months: No Home Medications - Allergies Allergies/Adverse Reactions: Allergies Allergy/AdvReac Type Severity Reaction Status Date / Time No Known Allergies Allergy Verified 02/15/18 11:55 - Home Medications Home Medications: Ambulatory Orders Albuterol 2.5/Ipratropium 0.5 [Duoneb -] 1 amp IH QID 02/15/18 Insulin Lispro [Humalog] 100 unit SQ BID 02/15/18 Metoprolol Tartrate 12.5 mg GT DAILY 02/15/18 Phenytoin 200 mg GT BID 02/15/18 Family Disease History - Family Disease History Family History: Unremarkable Review of Systems Findings/Remarks: as per HPI, H&P Physical Exam-GI Vital Signs: Vital Signs Temperature 99.6 F 02/17/18 07:32 Pulse Rate 78 02/17/18 07:32 Respiratory Rate 16 02/17/18 07:32 Blood Pressure 130/68 02/17/18 07:32 O2 Sat by Pulse Oximetry (%) 100 02/16/18 21:00 Constitutional: Yes: No Distress, Calm Eyes: Yes: Conjunctiva Clear HENT: Yes: Other (tracheostomy) Cardiovascular: No: Bradycardia, Tachycardia Respiratory: Yes: Mechanically Ventilated, Other (tracheostomy, vent) Labs: CBC, BMP 02/17/18 09:39 02/17/18 07:00 INR, PTT INR 1.07 (0.82-1.09) 02/15/18 12:55 Microbiology 02/15/18 Unknown Urine - Urine - Catheterized Urine Culture - Preliminary Lactose Fermenting Neg Bacilli 02/15/18 13:42 Sputum - Endotrachea Suction/Ventilator Gram Stain - Final 02/15/18 13:42 Sputum - Endotrachea Suction/Ventilator Sputum Culture - Preliminary Beta Hemolytic Strep 02/15/18 12:30 Blood - Peripheral Venous Blood Culture - Preliminary NO GROWTH OBTAINED AFTER 24 HOURS, INCUBATION TO CONTINUE FOR 4 DAYS. 02/15/18 12:30 Blood - Peripheral Venous Blood Culture - Preliminary NO GROWTH OBTAINED AFTER 24 HOURS, INCUBATION TO CONTINUE FOR 4 DAYS. Urine Test Results Urine Color Dkyellow 02/15/18 12:56 Urine Appearance Cloudy 02/15/18 12:56 Urine pH 5.0 (5.0-8.0) 02/15/18 12:56 Ur Specific [place] 1.021 (1.001-1.035) 02/15/18 12:56 Urine Protein 2+ (NEGATIVE) H 02/15/18 12:56 Urine Glucose (UA) Negative (NEGATIVE) 02/15/18 12:56 Urine Ketones Negative (NEGATIVE) 02/15/18 12:56 Urine Blood 1+ (NEGATIVE) H 02/15/18 12:56 Urine Nitrite Negative (NEGATIVE) 02/15/18 12:56 Urine Bilirubin Negative (<2.0 mg/dL) 02/15/18 12:56 Ur Leukocyte Esterase 3+ (NEGATIVE) H 02/15/18 12:56 Ur Epithelial Cells Rare /HPF (FEW) 02/15/18 12:56 Urine Bacteria Rare /hpf (NONE SEEN) 02/15/18 12:56 Urine Mucus Rare 02/15/18 12:56 Hepatic Panel Total Bilirubin 0.5 mg/dL (0.2-1.0) D 02/17/18 07:00 AST 119 U/L (15-37) H D 02/17/18 07:00 ALT 81 U/L (12-78) H 02/17/18 07:00 Alkaline Phosphatase 154 U/L (45-117) H 02/17/18 07:00 Albumin 1.7 g/dl (3.4-5.0) L 02/17/18 07:00 CBCD WBC 16.2 K/mm3 (4.0-10.0) H 02/17/18 09:39 RBC 2.77 M/mm3 (4.00-5.60) L 02/17/18 09:39 Hgb 8.2 GM/dL (11.7-16.9) L 02/17/18 09:39 Hct 24.8 % (35.4-49) L 02/17/18 09:39 MCV 89.4 fl (80-96) 02/17/18 09:39 MCHC 33.1 g/dl (32.0-35.9) 02/17/18 09:39 RDW 15.5 % (11.9-15.9) 02/17/18 09:39 Plt Count 283 K/MM3 (134-434) 02/17/18 09:39 MPV 7.6 fl (7.5-11.1) 02/17/18 09:39 CMP Sodium 139 mmol/L (136-145) 02/17/18 07:00 Potassium 5.2 mmol/L (3.5-5.1) H 02/17/18 07:00 Chloride 102 mmol/L (98-107) 02/17/18 07:00 Carbon Dioxide 24 mmol/L (21-32) 02/17/18 07:00 Anion Gap 13 (8-16) 02/17/18 07:00 BUN 42 mg/dL (7-18) H 02/17/18 07:00 Creatinine 0.6 mg/dL (0.7-1.3) L 02/17/18 07:00 Creat Clearance w eGFR > 60 (>60) 02/17/18 07:00 Calcium 7.9 mg/dL (8.5-10.1) L 02/17/18 07:00 Total Bilirubin 0.5 mg/dL (0.2-1.0) D 02/17/18 07:00 AST 119 U/L (15-37) H D 02/17/18 07:00 ALT 81 U/L (12-78) H 02/17/18 07:00 Alkaline Phosphatase 154 U/L (45-117) H 02/17/18 07:00 Total Protein 6.1 g/dl (6.4-8.2) L 02/17/18 07:00 Albumin 1.7 g/dl (3.4-5.0) L 02/17/18 07:00 Imaging - Results Ultrasound: Report Reviewed ([id number] US/ABDOMEN US -LIMITED HISTORY PROVIDED: Elevated liver function tests. Real time examination of the abdomen demonstrates the following: The study is limited and was performed in a portable manner. The gallbladder is slightly thick walled and does contain multiple calculi. There is no evidence of intra or extrahepatic biliary duct dilatation. The comptometrist describes a negative Rodriguez's sign. If acute cholecystitis is clinically suspected, a follow-up HIDA scan may be warranted. The liver is enlarged measuring 20.4 cm in craniocaudad dimension. It is hyperechoic in texture consistent with diffuse fatty infiltration. No discrete intrahepatic masses are identified. Hepatopedal flow is documented within the main portal vein. The pancreas is poorly visualized due to overlying bowel gas. There is no evidence of hydronephrosis or acute abnormalities of the right kidney. There is no evidence of AAA. The IVC is patent. IMPRESSION: Limited study with cholelithiasis, hepatomegaly and diffuse fatty infiltration of the liver. Please see above discussion.) Problem List - Problems (1) Alkaline phosphatase elevation Code(s): R74.8 - ABNORMAL LEVELS OF OTHER SERUM ENZYMES (2) Cholestasis Code(s): K83.1 - OBSTRUCTION OF BILE DUCT (3) Abnormal LFTs Code(s): R94.5 - ABNORMAL RESULTS OF LIVER FUNCTION STUDIES Assessment/Plan The liver enzymes abnormality is likely chronic, mulifatorial and includes metabilic, drug, and acutely, infectious etiologies. ?Cholestasis of sepsis, ? phenytoin-related. r/o acute GB pathology Agree with HIDA. Abx as per ID Will follow and monitor daily liver chem./response to treating infection OK to restart previous diet, if HIDA is negative
[2018-02-17] MEDS: ACETAMINOPHEN 650 MG/20.3 ML ORAL SOLUTION (CUPS) PO PRN (11:44)
[2018-02-17] MEDS: HEPARIN NA (PORCINE) 5,000 UNITS/ML 1ML VIAL SQ SCH ×2 (11:45→21:15)
[2018-02-17] MEDS: METOPROLOL TARTRATE 25 MG TABLET (FP) GT SCH (11:45)
[2018-02-17] MEDS: PHENYTOIN 100 MG/4 ML U-D CUP GT SCH ×2 (11:45→21:15)
[2018-02-17] MEDS ORDERED: INSULIN (NOVOLOG) ASPART 100 UNITS/ML 10ML VIAL ONE (11:49)
[2018-02-17] MEDS ORDERED: VANCOMYCIN 1,000 MG in DEXTROSE 5%-WATER - 250 ML IVPB ONE (14:04)
--- NOTE | 2018-02-17 14:49 | PN ---
Progress Note, Physician History of Present Illness: PULMONARY POORLY RESPONSIVE ON VENT SUPPORT,AC MODE ,-RESP DISTRESS,FEBRILE T-100.3 - Current Medication List Current Medications: Active Medications Acetaminophen (Tylenol Oral Solution -) 650 mg PO Q6H PRN PRN Reason: FEVER Last Admin: 02/17/18 11:44 Dose: 650 mg Albuterol/Ipratropium (Duoneb -) 1 amp NEB RQID [facility] Last Admin: 02/17/18 11:46 Dose: 1 amp Heparin Sodium (Porcine) (Heparin -) 5,000 unit SQ BID [facility] Last Admin: 02/17/18 11:45 Dose: 5,000 unit Sodium Chloride (1/2 Normal Saline) 1,000 mls @ 75 mls/hr IV ASDIR [facility] Last Admin: 02/17/18 01:57 Dose: 75 mls/hr Cefepime HCl 2 gm/ Dextrose 100 mls @ 200 mls/hr IVPB Q8H-IV [facility] PRN Reason: Protocol Last Admin: 02/17/18 11:48 Dose: 200 mls/hr Vancomycin HCl 1,000 mg/ (Dextrose) 250 mls @ 200 mls/hr IVPB ONCE ONE Stop: 02/17/18 15:18 Insulin Aspart (Novolog Vial Sliding Scale -) 1 vial SQ ACHS [facility] PRN Reason: Protocol Last Admin: 02/17/18 11:49 Dose: 2 units Metoprolol Tartrate (Lopressor -) 12.5 mg GT DAILY [facility] Last Admin: 02/17/18 11:45 Dose: 12.5 mg Phenytoin Sodium (Dilantin Oral Suspension -) 200 mg GT BID [facility] Last Admin: 02/17/18 11:45 Dose: 200 mg - Objective Vital Signs: Vital Signs Temperature 100.3 F H 02/17/18 10:00 Pulse Rate 80 02/17/18 10:00 Respiratory Rate 16 02/17/18 14:23 Blood Pressure 128/70 02/17/18 10:00 O2 Sat by Pulse Oximetry (%) 100 02/16/18 21:00 Constitutional: Yes: Well Nourished, Other (POORLY RESPONSIVE) Eyes: Yes: WNL HENT: Yes: WNL Neck: Yes: Supple (TRACH) Cardiovascular: Yes: Regular Rate and Rhythm, S1, S2 Respiratory: Yes: Rhonchi (ANA RHONCHI) Gastrointestinal: Yes: Normal Bowel Sounds, Soft Extremities: Yes: WNL Edema: No Labs: CBC, BMP 02/17/18 09:39 02/17/18 07:00 INR, PTT INR 1.07 (0.82-1.09) 02/15/18 12:55 Assessment/Plan Problem List - Problems (1) Abnormal LFTs Code(s): R94.5 - ABNORMAL RESULTS OF LIVER FUNCTION STUDIES (2) Fever Code(s): R50.9 - FEVER, UNSPECIFIED (3) Pneumonia Code(s): J18.9 - PNEUMONIA, UNSPECIFIED ORGANISM Qualifiers: Pneumonia type: due to unspecified organism Laterality: bilateral Lung location: unspecified part of lung Qualified Code(s): J18.9 - Pneumonia, unspecified organism (4) Respiratory failure Code(s): J96.90 - RESPIRATORY FAILURE, UNSP, UNSP W HYPOXIA OR HYPERCAPNIA Assessment/Plan ABX per ID AC Mode of vent VTE prophylaxis Inhaled bronchodilators Not a candidate for wean Will repeat CXR in a few days. (Do not feel CT is needed at this time) DR SMITH
--- NOTE | 2018-02-17 16:33 | PN ---
Progress Note, Physician History of Present Illness: Poorly responsive Febrile WBC elevated BC GPCCL Urine c/s LF Sputum mixed - Current Medication List Current Medications: Active Medications Acetaminophen (Tylenol Oral Solution -) 650 mg PO Q6H PRN PRN Reason: FEVER Last Admin: 02/17/18 11:44 Dose: 650 mg Albuterol/Ipratropium (Duoneb -) 1 amp NEB RQID [facility] Last Admin: 02/17/18 11:46 Dose: 1 amp Heparin Sodium (Porcine) (Heparin -) 5,000 unit SQ BID [facility] Last Admin: 02/17/18 11:45 Dose: 5,000 unit Sodium Chloride (1/2 Normal Saline) 1,000 mls @ 75 mls/hr IV ASDIR [facility] Last Admin: 02/17/18 01:57 Dose: 75 mls/hr Cefepime HCl 2 gm/ Dextrose 100 mls @ 200 mls/hr IVPB Q8H-IV [facility] PRN Reason: Protocol Last Admin: 02/17/18 11:48 Dose: 200 mls/hr Insulin Aspart (Novolog Vial Sliding Scale -) 1 vial SQ ACHS [facility] PRN Reason: Protocol Last Admin: 02/17/18 11:49 Dose: 2 units Metoprolol Tartrate (Lopressor -) 12.5 mg GT DAILY [facility] Last Admin: 02/17/18 11:45 Dose: 12.5 mg Phenytoin Sodium (Dilantin Oral Suspension -) 200 mg GT BID [facility] Last Admin: 02/17/18 11:45 Dose: 200 mg - Objective Vital Signs: Vital Signs Temperature 98.9 F 02/17/18 14:40 Pulse Rate 72 02/17/18 14:40 Respiratory Rate 18 02/17/18 14:40 Blood Pressure 130/69 02/17/18 14:40 O2 Sat by Pulse Oximetry (%) 100 02/17/18 09:00 Constitutional: Yes: No Distress Cardiovascular: Yes: Regular Rate and Rhythm, S1, S2 Respiratory: Yes: Mechanically Ventilated Gastrointestinal: Yes: Normal Bowel Sounds, Soft. No: Tenderness Edema: Yes Labs: CBC, BMP 02/17/18 09:39 02/17/18 07:00 INR, PTT INR 1.07 (0.82-1.09) 02/15/18 12:55 Assessment/Plan UTI/ Possible sepsis secondary to UTI +BC GPCCL Chronic Respiratory failure CVA Await c/s Continue cefepime Add vancomycin
[2018-02-17] MEDS: VANCOMYCIN 1,000 MG in DEXTROSE 5%-WATER - 250 ML IVPB SCH (20:39)
[2018-02-18] MEDS: CEFEPIME 2 GM in DEXTROSE 5%-WATER - 100 ML IVPB SCH ×3 (01:40→17:34)
[2018-02-18] MEDS: VANCOMYCIN 1,000 MG in DEXTROSE 5%-WATER - 250 ML IVPB SCH ×4 (06:31→20:30)
[2018-02-18] MEDS: INSULIN SLIDING SCALE (NOVOLOG) 1 VIAL SQ SCH ×4 (06:34→21:47)
[2018-02-18] MEDS: ALBUTEROL SO4 2.5/IPRATROPIUM 0.5 INH SOL 3 ML VIAL.NEB. NEB SCH ×4 (08:13→21:50)
[2018-02-18] MEDS ORDERED: PT OWN MED DRAWER 7, Y5N ONE ×4 (08:21→18:32)
[2018-02-18 08:37] LABS: HEMATOCRIT 26.2 % (35.4-49); HEMOGLOBIN 8.6 GM/dL (11.7-16.9); MCH 29.9 pg (25.7-33.7); MCHC 32.9 g/dl (32.0-35.9); MEAN PLT VOLUME 8.2 fl (7.5-11.1); PLATELET COUNT 298 K/MM3 (134-434); RBC 2.88 M/mm3 (4.00-5.60); RDW 15.8 % (11.9-15.9); WHITE BLOOD COUNT 13.7 K/mm3 (4.0-10.0)
[2018-02-18 09:01] LABS: CHLORIDE 101 mmol/L (98-107); GLUCOSE,RANDOM 185 mg/dL (74-106); POTASSIUM 4.1 mmol/L (3.5-5.1); SODIUM 137 mmol/L (136-145)
[2018-02-18 09:35] LABS: ALBUMIN 1.6 g/dl (3.4-5.0); BLOOD UREA NITROGEN 35 mg/dL (7-18)
--- NOTE | 2018-02-18 10:15 | PN ---
Progress Note, Physician History of Present Illness: More responsive Temps down Afebrile WBC improved BC GPCCL Urine c/s LF Sputum mixed - Current Medication List Current Medications: Active Medications Acetaminophen (Tylenol Oral Solution -) 650 mg PO Q6H PRN PRN Reason: FEVER Last Admin: 02/17/18 11:44 Dose: 650 mg Albuterol/Ipratropium (Duoneb -) 1 amp NEB RQID [facility] Last Admin: 02/18/18 08:13 Dose: 1 amp Heparin Sodium (Porcine) (Heparin -) 5,000 unit SQ BID [facility] Last Admin: 02/17/18 21:15 Dose: 5,000 unit Sodium Chloride (1/2 Normal Saline) 1,000 mls @ 75 mls/hr IV ASDIR [facility] Last Admin: 02/17/18 20:40 Dose: 75 mls/hr Cefepime HCl 2 gm/ Dextrose 100 mls @ 200 mls/hr IVPB Q8H-IV [facility] PRN Reason: Protocol Last Admin: 02/18/18 01:40 Dose: 200 mls/hr Vancomycin HCl 1,000 mg/ (Dextrose) 250 mls @ 166.667 mls/hr IVPB Q12H [facility] Last Admin: 02/18/18 06:31 Dose: Not Given Vancomycin HCl 1,000 mg/ (Dextrose) 250 mls @ 166.667 mls/hr IVPB Q12H [facility] Last Admin: 02/18/18 08:34 Dose: 166.667 mls/hr Insulin Aspart (Novolog Vial Sliding Scale -) 1 vial SQ ACHS [facility] PRN Reason: Protocol Last Admin: 02/18/18 06:34 Dose: Not Given Metoprolol Tartrate (Lopressor -) 12.5 mg GT DAILY [facility] Last Admin: 02/17/18 11:45 Dose: 12.5 mg Phenytoin Sodium (Dilantin Oral Suspension -) 200 mg GT BID [facility] Last Admin: 02/17/18 21:15 Dose: 200 mg - Objective Vital Signs: Vital Signs Temperature 98.7 F 02/18/18 09:40 Pulse Rate 76 02/18/18 09:40 Respiratory Rate 16 02/18/18 09:40 Blood Pressure 148/76 02/18/18 09:40 O2 Sat by Pulse Oximetry (%) 100 02/17/18 22:00 Constitutional: Yes: No Distress Cardiovascular: Yes: Regular Rate and Rhythm, S1, S2 Respiratory: Yes: Mechanically Ventilated Gastrointestinal: Yes: Normal Bowel Sounds, Soft. No: Tenderness Edema: Yes Edema: LUE: 2+, RUE: 2+, LLE: 1+, RLE: 1+ Labs: CBC, BMP 02/18/18 07:00 02/18/18 07:00 INR, PTT INR 1.07 (0.82-1.09) 02/15/18 12:55 Assessment/Plan UTI/ Possible sepsis secondary to UTI +BC GPCCL Chronic Respiratory failure CVA Await final c/s Continue cefepime Add vancomycin
[2018-02-18] MEDS: METOPROLOL TARTRATE 25 MG TABLET (FP) GT SCH (10:22)
[2018-02-18] MEDS: PHENYTOIN 100 MG/4 ML U-D CUP GT SCH ×2 (10:23→21:48)
[2018-02-18] MEDS: HEPARIN NA (PORCINE) 5,000 UNITS/ML 1ML VIAL SQ SCH ×2 (10:24→21:46)
--- NOTE | 2018-02-18 10:44 | PN ---
Progress Note, Physician - Current Medication List Current Medications: Active Medications Acetaminophen (Tylenol Oral Solution -) 650 mg PO Q6H PRN PRN Reason: FEVER Last Admin: 02/17/18 11:44 Dose: 650 mg Albuterol/Ipratropium (Duoneb -) 1 amp NEB RQID [facility] Last Admin: 02/18/18 08:13 Dose: 1 amp Heparin Sodium (Porcine) (Heparin -) 5,000 unit SQ BID [facility] Last Admin: 02/18/18 10:24 Dose: 5,000 unit Sodium Chloride (1/2 Normal Saline) 1,000 mls @ 75 mls/hr IV ASDIR [facility] Last Admin: 02/17/18 20:40 Dose: 75 mls/hr Cefepime HCl 2 gm/ Dextrose 100 mls @ 200 mls/hr IVPB Q8H-IV [facility] PRN Reason: Protocol Last Admin: 02/18/18 10:40 Dose: 200 mls/hr Vancomycin HCl 1,000 mg/ (Dextrose) 250 mls @ 166.667 mls/hr IVPB Q12H [facility] Last Admin: 02/18/18 06:31 Dose: Not Given Vancomycin HCl 1,000 mg/ (Dextrose) 250 mls @ 166.667 mls/hr IVPB Q12H [facility] Last Admin: 02/18/18 08:34 Dose: 166.667 mls/hr Insulin Aspart (Novolog Vial Sliding Scale -) 1 vial SQ ACHS [facility] PRN Reason: Protocol Last Admin: 02/18/18 06:34 Dose: Not Given Metoprolol Tartrate (Lopressor -) 12.5 mg GT DAILY [facility] Last Admin: 02/18/18 10:22 Dose: 12.5 mg Phenytoin Sodium (Dilantin Oral Suspension -) 200 mg GT BID [facility] Last Admin: 02/18/18 10:23 Dose: 200 mg - Objective Vital Signs: Vital Signs Temperature 98.7 F 02/18/18 09:40 Pulse Rate 76 02/18/18 09:40 Respiratory Rate 16 02/18/18 10:31 Blood Pressure 148/76 02/18/18 09:40 O2 Sat by Pulse Oximetry (%) 100 02/17/18 22:00 Cardiovascular: Yes: S1, S2 Respiratory: Yes: Mechanically Ventilated Gastrointestinal: Yes: Normal Bowel Sounds, Soft, Other (feeding tube) Labs: CBC, BMP 02/18/18 07:00 02/18/18 07:00 INR, PTT INR 1.07 (0.82-1.09) 02/15/18 12:55 Problem List - Problems (1) Abnormal LFTs Assessment/Plan: monitor w/u in progress Code(s): R94.5 - ABNORMAL RESULTS OF LIVER FUNCTION STUDIES (2) Pneumonia Assessment/Plan: iv abx cultures pulm and id on board Code(s): J18.9 - PNEUMONIA, UNSPECIFIED ORGANISM Qualifiers: Pneumonia type: due to unspecified organism Laterality: bilateral Lung location: unspecified part of lung Qualified Code(s): J18.9 - Pneumonia, unspecified organism (3) Respiratory failure Assessment/Plan: vent setting per pulm Code(s): J96.90 - RESPIRATORY FAILURE, UNSP, UNSP W HYPOXIA OR HYPERCAPNIA (4) Diabetes Assessment/Plan: bgm with coverage Code(s): E11.9 - TYPE 2 DIABETES MELLITUS WITHOUT COMPLICATIONS (5) Anemia Assessment/Plan: monitor Code(s): D64.9 - ANEMIA, UNSPECIFIED
[2018-02-18] MEDS: SODIUM CHLORIDE 0.45% 1,000 ML IV SCH ×2 (12:57→18:46)
--- NOTE | 2018-02-18 13:14 | PN ---
Progress Note (short form) - Note Progress Note: PULMONARY Vented, poorly responsive. Fever curve trending down. Last Vital Signs Temp Pulse Resp BP Pulse Ox 98.7 F 76 16 148/76 100 02/18/18 09:40 02/18/18 09:40 02/18/18 10:31 02/18/18 09:40 02/17/18 22:00 Gen: vented, poorly responsive Heart: RRR Lung: decreased breath sounds at the bases Abd: soft, nontender Ext: no edema CBC, BMP 02/18/18 07:00 02/18/18 07:00 Active Medications Acetaminophen (Tylenol Oral Solution -) 650 mg PO Q6H PRN PRN Reason: FEVER Last Admin: 02/17/18 11:44 Dose: 650 mg Albuterol/Ipratropium (Duoneb -) 1 amp NEB RQID [facility] Last Admin: 02/18/18 12:34 Dose: 1 amp Heparin Sodium (Porcine) (Heparin -) 5,000 unit SQ BID [facility] Last Admin: 02/18/18 10:24 Dose: 5,000 unit Sodium Chloride (1/2 Normal Saline) 1,000 mls @ 75 mls/hr IV ASDIR [facility] Last Admin: 02/18/18 12:57 Dose: 75 mls/hr Cefepime HCl 2 gm/ Dextrose 100 mls @ 200 mls/hr IVPB Q8H-IV [facility] PRN Reason: Protocol Last Admin: 02/18/18 10:40 Dose: 200 mls/hr Vancomycin HCl 1,000 mg/ (Dextrose) 250 mls @ 166.667 mls/hr IVPB Q12H [facility] Last Admin: 02/18/18 06:31 Dose: Not Given Vancomycin HCl 1,000 mg/ (Dextrose) 250 mls @ 166.667 mls/hr IVPB Q12H [facility] Last Admin: 02/18/18 08:34 Dose: 166.667 mls/hr Insulin Aspart (Novolog Vial Sliding Scale -) 1 vial SQ ACHS [facility] PRN Reason: Protocol Last Admin: 02/18/18 12:59 Dose: 5 units Metoprolol Tartrate (Lopressor -) 12.5 mg GT DAILY [facility] Last Admin: 02/18/18 10:22 Dose: 12.5 mg Phenytoin Sodium (Dilantin Oral Suspension -) 200 mg GT BID [facility] Last Admin: 02/18/18 10:23 Dose: 200 mg A/P Chronic Respiratory Failure h/o CVA Anoxic Encephalopathy UTI Pneumonia Sepsis r/o Bacteremia - continue antibiotics - f/u cultures - enteral feeds - poor candidate for weaning due to mental status - DVT prophylaxis
[2018-02-18 14:46] LABS: ALK PHOS 145 U/L (45-117); ANION GAP 6 (8-16); BILIRUBIN,TOTAL 0.2 mg/dL (0.2-1.0); CALCIUM 7.5 mg/dL (8.5-10.1); CO2 22 mmol/L (21-32); CREATININE 0.5 mg/dL (0.7-1.3); SGOT/AST 78 U/L (15-37); SGPT/ALT 71 U/L (12-78); TOT PROT 5.4 g/dl (6.4-8.2)
[2018-02-19] MEDS: CEFEPIME 2 GM in DEXTROSE 5%-WATER - 100 ML IVPB SCH ×2 (02:27→12:50)
[2018-02-19] MEDS: VANCOMYCIN 1,000 MG in DEXTROSE 5%-WATER - 250 ML IVPB SCH ×4 (06:13→21:05)
[2018-02-19] MEDS: INSULIN SLIDING SCALE (NOVOLOG) 1 VIAL SQ SCH ×4 (06:16→21:07)
[2018-02-19] MEDS: ALBUTEROL SO4 2.5/IPRATROPIUM 0.5 INH SOL 3 ML VIAL.NEB. NEB SCH ×4 (08:09→20:00)
[2018-02-19] MEDS ORDERED: PT OWN MED DRAWER 7, Y5N ONE (08:21)
--- NOTE | 2018-02-19 09:31 | PN ---
Progress Note, Physician - Current Medication List Current Medications: Active Medications Acetaminophen (Tylenol Oral Solution -) 650 mg PO Q6H PRN PRN Reason: FEVER Last Admin: 02/17/18 11:44 Dose: 650 mg Albuterol/Ipratropium (Duoneb -) 1 amp NEB RQID [facility] Last Admin: 02/19/18 08:09 Dose: 1 amp Heparin Sodium (Porcine) (Heparin -) 5,000 unit SQ BID [facility] Last Admin: 02/18/18 21:46 Dose: 5,000 unit Sodium Chloride (1/2 Normal Saline) 1,000 mls @ 75 mls/hr IV ASDIR [facility] Last Admin: 02/18/18 18:46 Dose: Not Given Cefepime HCl 2 gm/ Dextrose 100 mls @ 200 mls/hr IVPB Q8H-IV [facility] PRN Reason: Protocol Last Admin: 02/19/18 02:27 Dose: 200 mls/hr Vancomycin HCl 1,000 mg/ (Dextrose) 250 mls @ 166.667 mls/hr IVPB Q12H [facility] Last Admin: 02/19/18 06:13 Dose: Not Given Vancomycin HCl 1,000 mg/ (Dextrose) 250 mls @ 166.667 mls/hr IVPB Q12H [facility] Last Admin: 02/19/18 08:25 Dose: 166.667 mls/hr Insulin Aspart (Novolog Vial Sliding Scale -) 1 vial SQ ACHS [facility] PRN Reason: Protocol Last Admin: 02/19/18 06:16 Dose: 5 units Metoprolol Tartrate (Lopressor -) 12.5 mg GT DAILY [facility] Last Admin: 02/18/18 10:22 Dose: 12.5 mg Phenytoin Sodium (Dilantin Oral Suspension -) 200 mg GT BID [facility] Last Admin: 02/18/18 21:48 Dose: 200 mg - Objective Vital Signs: Vital Signs Temperature 98.2 F 02/19/18 07:09 Pulse Rate 85 02/19/18 07:09 Respiratory Rate 22 02/19/18 07:09 Blood Pressure 135/65 02/19/18 07:09 O2 Sat by Pulse Oximetry (%) 100 02/18/18 22:00 Cardiovascular: Yes: S1, S2 Respiratory: Yes: Regular, CTA Bilaterally Gastrointestinal: Yes: Normal Bowel Sounds, Soft Labs: CBC, BMP 02/18/18 07:00 02/18/18 07:00 INR, PTT INR 1.07 (0.82-1.09) 02/15/18 12:55 Problem List - Problems (1) Abnormal LFTs Assessment/Plan: monitor w/u in progress gi on case Code(s): R94.5 - ABNORMAL RESULTS OF LIVER FUNCTION STUDIES (2) Pneumonia Assessment/Plan: iv abx cultures pulm and id on board Code(s): J18.9 - PNEUMONIA, UNSPECIFIED ORGANISM Qualifiers: Pneumonia type: due to unspecified organism Laterality: bilateral Lung location: unspecified part of lung Qualified Code(s): J18.9 - Pneumonia, unspecified organism (3) Respiratory failure Assessment/Plan: vent setting per pulm Code(s): J96.90 - RESPIRATORY FAILURE, UNSP, UNSP W HYPOXIA OR HYPERCAPNIA (4) Diabetes Assessment/Plan: bgm with coverage Code(s): E11.9 - TYPE 2 DIABETES MELLITUS WITHOUT COMPLICATIONS (5) Anemia Assessment/Plan: monitor hem consult needs AC will asses after hem and vascular Code(s): D64.9 - ANEMIA, UNSPECIFIED (6) DVT (deep venous thrombosis) Assessment/Plan: -venous duplex -vascular---ivc filter Code(s): I82.409 - ACUTE EMBOLISM AND THOMBOS UNSP DEEP VN UNSP LOWER EXTREMITY (7) Hematoma Assessment/Plan: surgical consult Code(s): T14.8XXA - OTHER INJURY OF UNSPECIFIED BODY REGION, INITIAL ENCOUNTER
[2018-02-19 11:08] LABS: BASO % 0.3 % (0-2.0); EOS % 3.5 % (0-4.5); HEMATOCRIT 27.8 % (35.4-49); HEMOGLOBIN 9.1 GM/dL (11.7-16.9); LYMPH % 6.3 % (8-40); MCH 29.4 pg (25.7-33.7); MCHC 32.8 g/dl (32.0-35.9); MEAN CELL VOLUME 89.5 fl (80-96); MEAN PLT VOLUME 8.2 fl (7.5-11.1); MONO % 4.9 % (3.8-10.2); PLATELET COUNT 321 K/MM3 (134-434); RBC 3.11 M/mm3 (4.00-5.60); RDW 15.5 % (11.9-15.9); WHITE BLOOD COUNT 17.5 K/mm3 (4.0-10.0)
[2018-02-19 11:40] LABS: ALBUMIN 1.5 g/dl (3.4-5.0); ANION GAP 10 (8-16); BILIRUBIN,TOTAL 0.1 mg/dL (0.2-1.0); BLOOD UREA NITROGEN 31 mg/dL (7-18); CALCIUM 7.6 mg/dL (8.5-10.1); CHLORIDE 101 mmol/L (98-107); CO2 22 mmol/L (21-32); CREATININE 0.5 mg/dL (0.7-1.3); GLUCOSE,RANDOM 203 mg/dL (74-106); SGOT/AST 59 U/L (15-37); SGPT/ALT 59 U/L (12-78); SODIUM 133 mmol/L (136-145); TOT PROT 5.4 g/dl (6.4-8.2)
[2018-02-19 11:43] LABS: ALK PHOS 180 U/L (45-117)
--- NOTE | 2018-02-19 12:13 | PN ---
Progress Note (short form) - Note Progress Note: PULMONARY Vented, poorly responsive. No fevers recorded. Last Vital Signs Temp Pulse Resp BP Pulse Ox 98.2 F 85 20 135/65 100 02/19/18 07:09 02/19/18 07:09 02/19/18 10:36 02/19/18 07:09 02/18/18 22:00 Gen: vented, poorly responsive Heart: RRR Lung: decreased breath sounds at the bases Abd: soft, nontender Ext: no edema CBC, BMP 02/19/18 10:19 02/19/18 10:19 Active Medications Acetaminophen (Tylenol Oral Solution -) 650 mg PO Q6H PRN PRN Reason: FEVER Last Admin: 02/17/18 11:44 Dose: 650 mg Albuterol/Ipratropium (Duoneb -) 1 amp NEB RQID [facility] Last Admin: 02/19/18 12:04 Dose: 1 amp Heparin Sodium (Porcine) (Heparin -) 5,000 unit SQ BID [facility] Last Admin: 02/18/18 21:46 Dose: 5,000 unit Sodium Chloride (1/2 Normal Saline) 1,000 mls @ 75 mls/hr IV ASDIR [facility] Last Admin: 02/18/18 18:46 Dose: Not Given Cefepime HCl 2 gm/ Dextrose 100 mls @ 200 mls/hr IVPB Q8H-IV [facility] PRN Reason: Protocol Last Admin: 02/19/18 02:27 Dose: 200 mls/hr Vancomycin HCl 1,000 mg/ (Dextrose) 250 mls @ 166.667 mls/hr IVPB Q12H [facility] Last Admin: 02/19/18 06:13 Dose: Not Given Vancomycin HCl 1,000 mg/ (Dextrose) 250 mls @ 166.667 mls/hr IVPB Q12H [facility] Last Admin: 02/19/18 08:25 Dose: 166.667 mls/hr Insulin Aspart (Novolog Vial Sliding Scale -) 1 vial SQ ACHS [facility] PRN Reason: Protocol Last Admin: 02/19/18 06:16 Dose: 5 units Metoprolol Tartrate (Lopressor -) 12.5 mg GT DAILY [facility] Last Admin: 02/18/18 10:22 Dose: 12.5 mg Phenytoin Sodium (Dilantin Oral Suspension -) 200 mg GT BID [facility] Last Admin: 02/18/18 21:48 Dose: 200 mg A/P Chronic Respiratory Failure h/o CVA Anoxic Encephalopathy UTI Pneumonia Sepsis r/o Bacteremia - continue antibiotics - f/u cultures - enteral feeds - poor candidate for weaning due to mental status - DVT prophylaxis
[2018-02-19] MEDS: PHENYTOIN 100 MG/4 ML U-D CUP GT SCH ×2 (12:50→22:45)
[2018-02-19] MEDS: HEPARIN NA (PORCINE) 5,000 UNITS/ML 1ML VIAL SQ SCH (12:50)
[2018-02-19] MEDS: METOPROLOL TARTRATE 25 MG TABLET (FP) GT SCH (12:51)
--- NOTE | 2018-02-19 14:55 | PN ---
Progress Note, Physician History of Present Illness: Lethargic No acute distress Afebrile WBC remains elevated BC SCN, GPR Urine c/s ESBL Sputum mixed - Current Medication List Current Medications: Active Medications Acetaminophen (Tylenol Oral Solution -) 650 mg PO Q6H PRN PRN Reason: FEVER Last Admin: 02/17/18 11:44 Dose: 650 mg Albuterol/Ipratropium (Duoneb -) 1 amp NEB RQID [facility] Last Admin: 02/19/18 12:04 Dose: 1 amp Heparin Sodium (Porcine) (Heparin -) 5,000 unit SQ BID [facility] Last Admin: 02/19/18 12:50 Dose: 5,000 unit Sodium Chloride (1/2 Normal Saline) 1,000 mls @ 75 mls/hr IV ASDIR [facility] Last Admin: 02/18/18 18:46 Dose: Not Given Cefepime HCl 2 gm/ Dextrose 100 mls @ 200 mls/hr IVPB Q8H-IV [facility] PRN Reason: Protocol Last Admin: 02/19/18 12:50 Dose: 200 mls/hr Vancomycin HCl 1,000 mg/ (Dextrose) 250 mls @ 166.667 mls/hr IVPB Q12H [facility] Last Admin: 02/19/18 06:13 Dose: Not Given Vancomycin HCl 1,000 mg/ (Dextrose) 250 mls @ 166.667 mls/hr IVPB Q12H [facility] Last Admin: 02/19/18 08:25 Dose: 166.667 mls/hr Insulin Aspart (Novolog Vial Sliding Scale -) 1 vial SQ ACHS [facility] PRN Reason: Protocol Last Admin: 02/19/18 12:51 Dose: 2 units Metoprolol Tartrate (Lopressor -) 12.5 mg GT DAILY [facility] Last Admin: 02/19/18 12:51 Dose: 12.5 mg Phenytoin Sodium (Dilantin Oral Suspension -) 200 mg GT BID [facility] Last Admin: 02/19/18 12:50 Dose: 200 mg - Objective Vital Signs: Vital Signs Temperature 98.2 F 02/19/18 07:09 Pulse Rate 85 02/19/18 07:09 Respiratory Rate 16 02/19/18 14:25 Blood Pressure 135/65 02/19/18 07:09 O2 Sat by Pulse Oximetry (%) 100 02/18/18 22:00 Constitutional: Yes: No Distress Cardiovascular: Yes: Regular Rate and Rhythm, S1, S2 Respiratory: Yes: Diminished Gastrointestinal: Yes: Normal Bowel Sounds, Soft Labs: CBC, BMP 02/19/18 10:19 02/19/18 10:19 INR, PTT INR 1.07 (0.82-1.09) 02/15/18 12:55 Assessment/Plan UTI/ Possible sepsis secondary to UTI +BC SCN, GPR Likely contaminants Chronic Respiratory failure CVA Await final c/s Substitute ertapenem Contact precautions
--- NOTE | 2018-02-19 16:58 | CONSULT ---
Consult - text type - Consultation Consultation Note: 67M, chronic respiratory failure (Trach / Vent dependent), CVA, DM, HTN, hyperlipidemia, and seizures. Admitted via the ER from the SNF due to fever, increased tracheal secretions and possible UTI. CXR revealed multilobar infiltrates. On broad spectrum antibiotics. Noted to have mild cholestasis and transaminitis. The patient is non-verbal. Hx from medical records. we have been consulted for left femoral DVT and rt. gluteal hematoma noted on CT scan - Past Medical History [employer]: Yes: CVA Pulmonary: Yes: O2 Dependent, Other - Smoking History Smoking history: Unknown if ever smoked Home Medications - Allergies Allergies/Adverse Reactions: Allergies Allergy/AdvReac Type Severity Reaction Status Date / Time No Known Allergies Allergy Verified 02/15/18 11:55 - Home Medications Home Medications: Ambulatory Orders Albuterol 2.5/Ipratropium 0.5 [Duoneb -] 1 amp IH QID 02/15/18 Insulin Lispro [Humalog] 100 unit SQ BID 02/15/18 Metoprolol Tartrate 12.5 mg GT DAILY 02/15/18 Phenytoin 200 mg GT BID 02/15/18 Physical Exam-GI Vital Signs: Last Vital Signs Temp Pulse Resp BP Pulse Ox 97.8 F 84 16 120/64 100 02/19/18 15:57 02/19/18 15:57 02/19/18 15:57 02/19/18 15:57 02/19/18 09:00 Constitutional: Yes: No Distress, Calm Eyes: Yes: Conjunctiva Clear HENT: Yes: Other (tracheostomy) Respiratory: Yes: Mechanically Ventilated, Other (tracheostomy, vent) Abnormal Lab Results 02/19/18 02/19/18 10:19 10:19 WBC 17.5 H RBC 3.11 L Hgb 9.1 L Hct 27.8 L Neutrophils % 85.0 H Lymphocytes % 6.3 L D Sodium 133 L BUN 31 H Creatinine 0.5 L Random Glucose 203 H Calcium 7.6 L Ferritin 1409.718 H Total Bilirubin 0.1 L D AST 59 H D Alkaline Phosphatase 180 H D Total Protein 5.4 L Albumin 1.5 L Home Medication List Medication Instructions Recorded Confirmed Type Albuterol 2.5/Ipratropium 0.5 1 amp IH QID 02/15/18 02/15/18 History [Duoneb -] Insulin Lispro [Humalog] 100 unit SQ BID 02/15/18 02/15/18 History Metoprolol Tartrate 12.5 mg GT DAILY 02/15/18 02/15/18 History Phenytoin 200 mg GT BID 02/15/18 02/15/18 History Active Medications Generic Name Dose Route Start Last Admin Trade Name Freq PRN Reason Stop Dose Admin Acetaminophen 650 mg 02/16/18 12:28 02/17/18 11:44 Tylenol Oral Solution - PO 650 mg Q6H PRN Administration FEVER Albuterol/Ipratropium 1 amp 02/15/18 20:00 02/19/18 12:04 Duoneb - NEB 1 amp RQID [facility] Administration Heparin Sodium (Porcine) 5,000 unit 02/15/18 22:00 02/19/18 12:50 Heparin - SQ 5,000 unit BID [facility] Administration Sodium Chloride 1,000 mls @ 75 mls/hr 02/15/18 19:45 02/18/18 18:46 1/2 Normal Saline IV Not Given ASDIR [facility] Cefepime HCl 2 gm/ Dextrose 100 mls @ 200 mls/hr 02/16/18 10:00 02/19/18 12: 50 IVPB 200 mls/hr Q8H-IV [facility] Administration Protocol Vancomycin HCl 1,000 mg/ 250 mls @ 166.667 mls/hr 02/17/18 16:45 02/19/18 15: 59 Dextrose IVPB Not Given Q12H [facility] Vancomycin HCl 1,000 mg/ 250 mls @ 166.667 mls/hr 02/17/18 20:00 02/19/18 08: 25 Dextrose IVPB 166.667 mls/hr Q12H [facility] Administration Insulin Aspart 1 vial 02/15/18 22:00 02/19/18 12:51 Novolog Vial Sliding Scale - SQ 2 units ACHS [facility] Administration Protocol Metoprolol Tartrate 12.5 mg 02/16/18 10:00 02/19/18 12:51 Lopressor - GT 12.5 mg DAILY [facility] Administration Phenytoin Sodium 200 mg 02/15/18 22:00 02/19/18 12:50 Dilantin Oral Suspension - GT 200 mg BID [facility] Administration Ultrasound: Report Reviewed ([id number] US/ABDOMEN US -LIMITED HISTORY PROVIDED: Elevated liver function tests. Real time examination of the abdomen demonstrates the following: The gallbladder is slightly thick walled and does contain multiple calculi. There is no evidence of intra or extrahepatic biliary duct dilatation. The clinical product specialist describes a negative Rodriguez's sign. If acute cholecystitis is clinically suspected, a follow-up HIDA scan may be warranted. The liver is enlarged measuring 20.4 cm in craniocaudad dimension. It is hyperechoic in texture consistent with diffuse fatty infiltration. No discrete intrahepatic masses are identified. Hepatopedal flow is documented within the main portal vein. The pancreas is poorly visualized due to overlying bowel gas. There is no evidence of hydronephrosis or acute abnormalities of the right kidney. There is no evidence of AAA. The IVC is patent. Assessment/Plan 67M, chronic respiratory failure (Trach / Vent dependent), CVA, DM, HTN, hyperlipidemia, and seizures. Admitted via the ER from the SNF due to fever, increased tracheal secretions and possible UTI. CXR revealed multilobar infiltrates. On broad spectrum antibiotics. Noted to have mild cholestasis and transaminitis. We have been consulted for left femoral DVT noted on CT scan and rt. gluteal hematoma?? noted on CT vascular U/S-- left common femoral DVT. popliteal,post. tibial. Rt. popliteal and post. tibial DVT discussed with radiology --swelling of rt. gluteus medius with small hematoma Nl PT/PTT/Platelets/renal function hemoglobin stable will start lovenox close monitoring of hgb/ reimaging of gluteus hematoma after 48hrs. on a/c will consult ortho/vascular
[2018-02-19] MEDS ORDERED: ENOXAPARIN NA (PORCINE) 100 MG/1 ML DISP.SYRIN SQ SCH (17:45)
[2018-02-19] MEDS: SODIUM CHLORIDE 0.45% 1,000 ML IV SCH (19:03)
[2018-02-19] MEDS: ERTAPENEM SODIUM 1 GM in SODIUM CHLORIDE 100 ML IVPB SCH (19:03)
--- NOTE | 2018-02-19 19:40 | PN ---
Progress Note, Physician History of Present Illness: Chart reviewed. No events. Clinically the same - Current Medication List Current Medications: Active Medications Acetaminophen (Tylenol Oral Solution -) 650 mg PO Q6H PRN PRN Reason: FEVER Last Admin: 02/17/18 11:44 Dose: 650 mg Albuterol/Ipratropium (Duoneb -) 1 amp NEB RQID [facility] Last Admin: 02/19/18 16:50 Dose: 1 amp Sodium Chloride (1/2 Normal Saline) 1,000 mls @ 75 mls/hr IV ASDIR [facility] Last Admin: 02/19/18 19:03 Dose: 75 mls/hr Vancomycin HCl 1,000 mg/ (Dextrose) 250 mls @ 166.667 mls/hr IVPB Q12H [facility] Last Admin: 02/19/18 08:25 Dose: 166.667 mls/hr Ertapenem 1 gm/ Sodium (Chloride) 100 mls @ 100 mls/hr IVPB DAILY [facility] PRN Reason: Protocol Last Admin: 02/19/18 19:03 Dose: 100 mls/hr Insulin Aspart (Novolog Vial Sliding Scale -) 1 vial SQ ACHS [facility] PRN Reason: Protocol Last Admin: 02/19/18 17:53 Dose: 5 units Metoprolol Tartrate (Lopressor -) 12.5 mg GT DAILY [facility] Last Admin: 02/19/18 12:51 Dose: 12.5 mg Phenytoin Sodium (Dilantin Oral Suspension -) 200 mg GT BID [facility] Last Admin: 02/19/18 12:50 Dose: 200 mg - Objective Vital Signs: Vital Signs Temperature 98.0 F 02/19/18 18:44 Pulse Rate 82 02/19/18 18:44 Respiratory Rate 19 02/19/18 18:49 Blood Pressure 132/65 02/19/18 18:44 O2 Sat by Pulse Oximetry (%) 100 02/19/18 09:00 Gastrointestinal: Yes: Soft. No: Distention, Melena, Rectal Bleeding, Vomiting Labs: CBC, BMP 02/19/18 10:19 02/19/18 10:19 INR, PTT INR 1.07 (0.82-1.09) 02/15/18 12:55 Hepatic Panel Total Bilirubin 0.1 mg/dL (0.2-1.0) L D 02/19/18 10:19 AST 59 U/L (15-37) H D 02/19/18 10:19 ALT 59 U/L (12-78) 02/19/18 10:19 Alkaline Phosphatase 180 U/L (45-117) H D 02/19/18 10:19 Albumin 1.5 g/dl (3.4-5.0) L 02/19/18 10:19 Problem List - Problems (1) Alkaline phosphatase elevation Code(s): R74.8 - ABNORMAL LEVELS OF OTHER SERUM ENZYMES (2) Cholestasis Code(s): K83.1 - OBSTRUCTION OF BILE DUCT (3) Abnormal LFTs Code(s): R94.5 - ABNORMAL RESULTS OF LIVER FUNCTION STUDIES Assessment/Plan The liver enzymes abnormality is likely chronic, mulifatorial and includes metabilic, drug, and acutely, infectious etiologies. ?Cholestasis of sepsis, ? phenytoin-related. r/o acute GB pathology Mild cholestasis, normal bilirubin. Likely drug, infection-related. Will continue to monitor
[2018-02-20 06:06] LABS: SERUM IRON SATURATION 24 % (15-55); TOTAL IRON BINDING CAPACITY 131 ug/dL (250-450); UIBC 99 ug/dL (111-343)
[2018-02-20] MEDS: INSULIN SLIDING SCALE (NOVOLOG) 1 VIAL SQ SCH ×4 (06:56→21:42)
[2018-02-20 07:32] LABS: HEMATOCRIT 23.7 % (35.4-49); HEMOGLOBIN 7.9 GM/dL (11.7-16.9); MCH 29.6 pg (25.7-33.7); MCHC 33.2 g/dl (32.0-35.9); MEAN PLT VOLUME 7.8 fl (7.5-11.1); PLATELET COUNT 295 K/MM3 (134-434); RBC 2.66 M/mm3 (4.00-5.60); RDW 15.7 % (11.9-15.9); WHITE BLOOD COUNT 13.3 K/mm3 (4.0-10.0)
[2018-02-20 07:55] LABS: INR 1.07 (0.82-1.09); PROTHROMBIN TIME (PATIENT) 12.1 SEC (9.98-11.88)
[2018-02-20 07:58] LABS: ACTIVATED PTT 27.1 SECONDS (26.9-34.4)
[2018-02-20] MEDS ORDERED: PT OWN MED DRAWER 7, Y5N ONE ×3 (08:24→13:30)
[2018-02-20] MEDS: ALBUTEROL SO4 2.5/IPRATROPIUM 0.5 INH SOL 3 ML VIAL.NEB. NEB SCH ×3 (08:30→16:56)
[2018-02-20] MEDS: VANCOMYCIN 1,000 MG in DEXTROSE 5%-WATER - 250 ML IVPB SCH ×3 (08:34→20:37)
[2018-02-20 10:56] LABS: ACANTHOCYTES 0; ANISOCYTOSIS 0; HELMET CELLS 0; HOWELL-JOLLY BODIES 0; MACROCYTOSIS 0; OVALOCYTE 0; PLATELET ESTIMATE NORMAL; ROULEAU 0; SICKELED CELLS 0; TARGET CELLS 0; TEAR DROP CELLS 0; TOXIC GRANULATION 0
[2018-02-20] MEDS: METOPROLOL TARTRATE 25 MG TABLET (FP) GT SCH (11:28)
--- NOTE | 2018-02-20 11:32 | PN ---
Progress Note (short form) - Note Progress Note: discussed with Dr. kenny CT findings Will start lovenox 100mg SC bid
[2018-02-20] MEDS: PHENYTOIN 100 MG/4 ML U-D CUP GT SCH ×2 (11:34→22:30)
--- NOTE | 2018-02-20 11:56 | PN ---
Progress Note (short form) - Note Progress Note: PULMONARY Vented, poorly responsive. No fevers recorded. Vented on volume assist control. Last Vital Signs Temp Pulse Resp BP Pulse Ox 97.9 F 75 16 156/87 100 02/20/18 09:00 02/20/18 09:00 02/20/18 10:25 02/20/18 09:00 02/19/18 22:00 Gen: vented, poorly responsive Heart: RRR Lung: decreased breath sounds at the bases Abd: soft, nontender Ext: no edema CBC, BMP 02/20/18 07:10 02/19/18 10:19 Active Medications Acetaminophen (Tylenol Oral Solution -) 650 mg PO Q6H PRN PRN Reason: FEVER Last Admin: 02/17/18 11:44 Dose: 650 mg Albuterol/Ipratropium (Duoneb -) 1 amp NEB RQID [facility] Last Admin: 02/20/18 08:30 Dose: 1 amp Enoxaparin Sodium (Lovenox -) 100 mg SQ Q12H [facility] Sodium Chloride (1/2 Normal Saline) 1,000 mls @ 75 mls/hr IV ASDIR [facility] Last Admin: 02/19/18 19:03 Dose: 75 mls/hr Vancomycin HCl 1,000 mg/ (Dextrose) 250 mls @ 166.667 mls/hr IVPB Q12H [facility] Last Admin: 02/20/18 08:34 Dose: 166.667 mls/hr Ertapenem 1 gm/ Sodium (Chloride) 100 mls @ 100 mls/hr IVPB DAILY [facility] PRN Reason: Protocol Last Admin: 02/19/18 19:03 Dose: 100 mls/hr Insulin Aspart (Novolog Vial Sliding Scale -) 1 vial SQ ACHS [facility] PRN Reason: Protocol Last Admin: 02/20/18 06:56 Dose: 2 units Metoprolol Tartrate (Lopressor -) 12.5 mg GT DAILY [facility] Last Admin: 02/20/18 11:28 Dose: 12.5 mg Phenytoin Sodium (Dilantin Oral Suspension -) 200 mg GT BID [facility] Last Admin: 02/20/18 11:34 Dose: 200 mg A/P Chronic Respiratory Failure h/o CVA Anoxic Encephalopathy UTI Pneumonia Sepsis Bacteremia - continue antibiotics - for HIDA scan - enteral feeds - poor candidate for weaning due to mental status - DVT prophylaxis
--- NOTE | 2018-02-20 13:06 | PN ---
Progress Note, Physician Chief Complaint: Heme/Onc Service History of Present Illness: Pt is trached and vented. Poorly responsive to sternal rub. No acute event overnight. - Current Medication List Current Medications: Active Medications Acetaminophen (Tylenol Oral Solution -) 650 mg PO Q6H PRN PRN Reason: FEVER Last Admin: 02/17/18 11:44 Dose: 650 mg Albuterol/Ipratropium (Duoneb -) 1 amp NEB RQID [facility] Last Admin: 02/20/18 11:10 Dose: 1 amp Enoxaparin Sodium (Lovenox -) 100 mg SQ BID [facility] Sodium Chloride (1/2 Normal Saline) 1,000 mls @ 75 mls/hr IV ASDIR [facility] Last Admin: 02/19/18 19:03 Dose: 75 mls/hr Vancomycin HCl 1,000 mg/ (Dextrose) 250 mls @ 166.667 mls/hr IVPB Q12H [facility] Last Admin: 02/20/18 08:34 Dose: 166.667 mls/hr Ertapenem 1 gm/ Sodium (Chloride) 100 mls @ 100 mls/hr IVPB DAILY [facility] PRN Reason: Protocol Last Admin: 02/19/18 19:03 Dose: 100 mls/hr Insulin Aspart (Novolog Vial Sliding Scale -) 1 vial SQ ACHS [facility] PRN Reason: Protocol Last Admin: 02/20/18 06:56 Dose: 2 units Metoprolol Tartrate (Lopressor -) 12.5 mg GT DAILY [facility] Last Admin: 02/20/18 11:28 Dose: 12.5 mg Phenytoin Sodium (Dilantin Oral Suspension -) 200 mg GT BID [facility] Last Admin: 02/20/18 11:34 Dose: 200 mg - Objective Vital Signs: Vital Signs Temperature 97.9 F 02/20/18 09:00 Pulse Rate 75 02/20/18 09:00 Respiratory Rate 16 02/20/18 10:25 Blood Pressure 156/87 02/20/18 09:00 O2 Sat by Pulse Oximetry (%) 100 02/20/18 10:00 Constitutional: Yes: Other (Trached and on mechanical ventilation) HENT: Yes: Atraumatic, Normocephalic Neck: Yes: Supple, Trachea Midline Cardiovascular: Yes: Regular Rate and Rhythm Respiratory: Yes: Mechanically Ventilated Gastrointestinal: Yes: Normal Bowel Sounds, Soft, Other (G tube) Edema: No Peripheral Pulses WNL: Yes Neurological: Yes: Unresponsive Labs: CBC, BMP 02/20/18 07:10 02/19/18 10:19 INR, PTT INR 1.07 (0.82-1.09) 02/20/18 07:10 Fibrinogen 575.0 mg/dL (238-498) H 02/20/18 07:10 Impression/Plan Impression/Plan: 67 yo M h/o trached and vented, CVA, DM, HTN, hyperlipidemia, and seizures admitted to the hospital for pneumonia and UTI. #L femoral DVT #R gluteal hematoma #Chronic respiratory failure #UTI #PNA #Seizure disorder #h/o CVA - Start lovenox 100mg SC BID - Monitor CBC and hematoma size - HIDA scan - Cont. abx Alexandre Dash PGY2 Pager: [phone] Visit type - Emergency Visit Emergency Visit: No - New Patient This patient is new to me today: Yes Date on this admission: 02/20/18 - Critical Care Critical Care patient: No - Discharge Referral Referred to [facility] Med P.C.: No
--- NOTE | 2018-02-20 13:09 | PN ---
Progress Note, Physician History of Present Illness: Lethargic No acute distress HIDA scan in progress preliminarily normal Afebrile WBC improved 13k BC SCN, GPR Urine c/s ESBL Sputum mixed - Current Medication List Current Medications: Active Medications Acetaminophen (Tylenol Oral Solution -) 650 mg PO Q6H PRN PRN Reason: FEVER Last Admin: 02/17/18 11:44 Dose: 650 mg Albuterol/Ipratropium (Duoneb -) 1 amp NEB RQID [facility] Last Admin: 02/20/18 11:10 Dose: 1 amp Enoxaparin Sodium (Lovenox -) 100 mg SQ BID [facility] Sodium Chloride (1/2 Normal Saline) 1,000 mls @ 75 mls/hr IV ASDIR [facility] Last Admin: 02/19/18 19:03 Dose: 75 mls/hr Vancomycin HCl 1,000 mg/ (Dextrose) 250 mls @ 166.667 mls/hr IVPB Q12H [facility] Last Admin: 02/20/18 08:34 Dose: 166.667 mls/hr Ertapenem 1 gm/ Sodium (Chloride) 100 mls @ 100 mls/hr IVPB DAILY [facility] PRN Reason: Protocol Last Admin: 02/19/18 19:03 Dose: 100 mls/hr Insulin Aspart (Novolog Vial Sliding Scale -) 1 vial SQ ACHS [facility] PRN Reason: Protocol Last Admin: 02/20/18 06:56 Dose: 2 units Metoprolol Tartrate (Lopressor -) 12.5 mg GT DAILY [facility] Last Admin: 02/20/18 11:28 Dose: 12.5 mg Phenytoin Sodium (Dilantin Oral Suspension -) 200 mg GT BID [facility] Last Admin: 02/20/18 11:34 Dose: 200 mg - Objective Vital Signs: Vital Signs Temperature 97.9 F 02/20/18 09:00 Pulse Rate 75 02/20/18 09:00 Respiratory Rate 16 02/20/18 10:25 Blood Pressure 156/87 02/20/18 09:00 O2 Sat by Pulse Oximetry (%) 100 02/20/18 10:00 Constitutional: Yes: No Distress, Cachectic Cardiovascular: Yes: Regular Rate and Rhythm, S1, S2 Respiratory: Yes: Diminished Gastrointestinal: Yes: Normal Bowel Sounds, Soft. No: Tenderness Labs: CBC, BMP 02/20/18 07:10 02/19/18 10:19 INR, PTT INR 1.07 (0.82-1.09) 02/20/18 07:10 Fibrinogen 575.0 mg/dL (238-498) H 02/20/18 07:10 Assessment/Plan UTI/ Possible sepsis secondary to UTI +BC SCN, GPR Likely contaminants Chronic Respiratory failure CVA Await final c/s Substitute ertapenem. Continue vancomycin Contact precautions
[2018-02-20] MEDS: ENOXAPARIN NA (PORCINE) 100 MG/1 ML DISP.SYRIN SQ SCH (13:31)
[2018-02-20] MEDS: ERTAPENEM SODIUM 1 GM in SODIUM CHLORIDE 100 ML IVPB SCH (13:31)
[2018-02-20] MEDS ORDERED: INSULIN (NOVOLOG) ASPART 100 UNITS/ML 10ML VIAL ONE (13:40)
--- NOTE | 2018-02-20 15:10 | PN ---
Progress Note, Physician History of Present Illness: Chart reviewed. No events. Clinically the same. HIDA negative, formal report pending - Current Medication List Current Medications: Active Medications Acetaminophen (Tylenol Oral Solution -) 650 mg PO Q6H PRN PRN Reason: FEVER Last Admin: 02/17/18 11:44 Dose: 650 mg Albuterol/Ipratropium (Duoneb -) 1 amp NEB RQID [facility] Last Admin: 02/20/18 11:10 Dose: 1 amp Enoxaparin Sodium (Lovenox -) 100 mg SQ BID [facility] Last Admin: 02/20/18 13:31 Dose: 100 mg Sodium Chloride (1/2 Normal Saline) 1,000 mls @ 75 mls/hr IV ASDIR [facility] Last Admin: 02/19/18 19:03 Dose: 75 mls/hr Vancomycin HCl 1,000 mg/ (Dextrose) 250 mls @ 166.667 mls/hr IVPB Q12H [facility] Last Admin: 02/20/18 08:34 Dose: 166.667 mls/hr Ertapenem 1 gm/ Sodium (Chloride) 100 mls @ 100 mls/hr IVPB DAILY [facility] PRN Reason: Protocol Last Admin: 02/20/18 13:31 Dose: 100 mls/hr Insulin Aspart (Novolog Vial Sliding Scale -) 1 vial SQ ACHS [facility] PRN Reason: Protocol Last Admin: 02/20/18 13:41 Dose: 5 units Metoprolol Tartrate (Lopressor -) 12.5 mg GT DAILY [facility] Last Admin: 02/20/18 11:28 Dose: 12.5 mg Phenytoin Sodium (Dilantin Oral Suspension -) 200 mg GT BID [facility] Last Admin: 02/20/18 11:34 Dose: 200 mg - Objective Vital Signs: Vital Signs Temperature 97.9 F 02/20/18 09:00 Pulse Rate 75 02/20/18 09:00 Respiratory Rate 20 02/20/18 14:40 Blood Pressure 156/87 02/20/18 09:00 O2 Sat by Pulse Oximetry (%) 100 02/20/18 10:00 Constitutional: Yes: No Distress, Calm Respiratory: Yes: Mechanically Ventilated Gastrointestinal: Yes: Soft. No: Ascites, Distention, Melena, Rectal Bleeding, Vomiting Labs: CBC, BMP 02/20/18 07:10 02/19/18 10:19 INR, PTT INR 1.07 (0.82-1.09) 02/20/18 07:10 Fibrinogen 575.0 mg/dL (238-498) H 02/20/18 07:10 CBCD WBC 13.3 K/mm3 (4.0-10.0) H 02/20/18 07:10 RBC 2.66 M/mm3 (4.00-5.60) L 02/20/18 07:10 Hgb 7.9 GM/dL (11.7-16.9) L D 02/20/18 07:10 Hct 23.7 % (35.4-49) L 02/20/18 07:10 MCV 89.0 fl (80-96) 02/20/18 07:10 MCHC 33.2 g/dl (32.0-35.9) 02/20/18 07:10 RDW 15.7 % (11.9-15.9) 02/20/18 07:10 Plt Count 295 K/MM3 (134-434) 02/20/18 07:10 MPV 7.8 fl (7.5-11.1) 02/20/18 07:10 CMP Sodium 133 mmol/L (136-145) L 02/19/18 10:19 Potassium 4.0 mmol/L (3.5-5.1) 02/19/18 10:19 Chloride 101 mmol/L (98-107) 02/19/18 10:19 Carbon Dioxide 22 mmol/L (21-32) 02/19/18 10:19 Anion Gap 10 (8-16) 02/19/18 10:19 BUN 31 mg/dL (7-18) H 02/19/18 10:19 Creatinine 0.5 mg/dL (0.7-1.3) L 02/19/18 10:19 Creat Clearance w eGFR > 60 (>60) 02/19/18 10:19 Calcium 7.6 mg/dL (8.5-10.1) L 02/19/18 10:19 Total Bilirubin 0.1 mg/dL (0.2-1.0) L D 02/19/18 10:19 AST 59 U/L (15-37) H D 02/19/18 10:19 ALT 59 U/L (12-78) 02/19/18 10:19 Alkaline Phosphatase 180 U/L (45-117) H D 02/19/18 10:19 Total Protein 5.4 g/dl (6.4-8.2) L 02/19/18 10:19 Albumin 1.5 g/dl (3.4-5.0) L 02/19/18 10:19 Problem List - Problems (1) Alkaline phosphatase elevation Code(s): R74.8 - ABNORMAL LEVELS OF OTHER SERUM ENZYMES (2) Cholestasis Code(s): K83.1 - OBSTRUCTION OF BILE DUCT (3) Abnormal LFTs Code(s): R94.5 - ABNORMAL RESULTS OF LIVER FUNCTION STUDIES Assessment/Plan The liver enzymes abnormality is likely chronic, mulifatorial and includes metabilic, drug, and acutely, infectious etiologies. ?Cholestasis of sepsis, ? phenytoin-related. Mild cholestasis, normal bilirubin. Likely drug, infection-related. HIDA negative, formal report pending Continue current care
--- NOTE | 2018-02-20 17:35 | PN ---
Progress Note, Physician Chief Complaint: SKY WINTER REVIEWED AWAITING OFFICIAL REPORT NEGATIVE PER GI - Current Medication List Current Medications: Active Medications Acetaminophen (Tylenol Oral Solution -) 650 mg PO Q6H PRN PRN Reason: FEVER Last Admin: 02/17/18 11:44 Dose: 650 mg Albuterol/Ipratropium (Duoneb -) 1 amp NEB RQID [facility] Last Admin: 02/20/18 16:56 Dose: 1 amp Enoxaparin Sodium (Lovenox -) 100 mg SQ BID [facility] Last Admin: 02/20/18 13:31 Dose: 100 mg Sodium Chloride (1/2 Normal Saline) 1,000 mls @ 75 mls/hr IV ASDIR [facility] Last Admin: 02/19/18 19:03 Dose: 75 mls/hr Vancomycin HCl 1,000 mg/ (Dextrose) 250 mls @ 166.667 mls/hr IVPB Q12H [facility] Last Admin: 02/20/18 08:34 Dose: 166.667 mls/hr Ertapenem 1 gm/ Sodium (Chloride) 100 mls @ 100 mls/hr IVPB DAILY [facility] PRN Reason: Protocol Last Admin: 02/20/18 13:31 Dose: 100 mls/hr Insulin Aspart (Novolog Vial Sliding Scale -) 1 vial SQ ACHS [facility] PRN Reason: Protocol Last Admin: 02/20/18 13:41 Dose: 5 units Metoprolol Tartrate (Lopressor -) 12.5 mg GT DAILY [facility] Last Admin: 02/20/18 11:28 Dose: 12.5 mg Phenytoin Sodium (Dilantin Oral Suspension -) 200 mg GT BID [facility] Last Admin: 02/20/18 11:34 Dose: 200 mg - Objective Vital Signs: Vital Signs Temperature 97.9 F 02/20/18 09:00 Pulse Rate 81 02/20/18 15:00 Respiratory Rate 16 02/20/18 15:00 Blood Pressure 132/67 02/20/18 15:00 O2 Sat by Pulse Oximetry (%) 100 02/20/18 10:00 Constitutional: Yes: Moderate Distress Eyes: Yes: WNL HENT: Yes: WNL Neck: Yes: WNL Cardiovascular: Yes: WNL Respiratory: Yes: Mechanically Ventilated (TRACHEOSTOMY) Gastrointestinal: Yes: Distention Genitourinary: Yes: Incontinence Musculoskeletal: Yes: Muscle Weakness Extremities: Yes: Other Edema: Yes Peripheral Pulses WNL: Yes Integumentary: Yes: Other Wound/Incision: Yes: Dressing Dry and Intact Neurological: Yes: Pre-Existing Deficit, Unresponsive ...Motor Strength: LLE, RLE Psychiatric: Yes: Other Labs: CBC, BMP 02/20/18 07:10 02/19/18 10:19 INR, PTT INR 1.07 (0.82-1.09) 02/20/18 07:10 Fibrinogen 575.0 mg/dL (238-498) H 02/20/18 07:10 Problem List - Problems (1) Abnormal LFTs Code(s): R94.5 - ABNORMAL RESULTS OF LIVER FUNCTION STUDIES (2) Fever Code(s): R50.9 - FEVER, UNSPECIFIED (3) Pneumonia Code(s): J18.9 - PNEUMONIA, UNSPECIFIED ORGANISM Qualifiers: Pneumonia type: due to unspecified organism Laterality: bilateral Lung location: unspecified part of lung Qualified Code(s): J18.9 - Pneumonia, unspecified organism (4) Respiratory failure Code(s): J96.90 - RESPIRATORY FAILURE, UNSP, UNSP W HYPOXIA OR HYPERCAPNIA Assessment/Plan FEEDS RESTARTED IV ABX PER ID LABS REVIEWED HIDA SCAN UNOFFICIAL REPORT NEGATIVE LFT ELEVATION IS MULTIFACTORIAL WITH SEPSIS, DILANTIN THERAPY OVERALL CHRONIC ILLNESS
--- NOTE | 2018-02-20 18:04 | PN ---
Progress Note (short form) - Note Progress Note: Asked to see pt. Pt seen and examined. He is on the ventilator, not responding verbally. CT scan shows multiple B/L LE DVTs. PE B/L LE are mildly swollen, no significant edema. Pt not following commans to assess NV status, Homman's Sign, etc. No signs of infection (I did not examine sacral or gluteal area) Imp Multiple B/L LE DVTs Rec NTD from an orthopedic POV. No signs of infection in either leg. DVTs are a vascular issue at this time.
--- NOTE | 2018-02-20 19:07 | CONSULT ---
Consult - text type - Consultation Consultation Note: NEUROLOGY CONSULTATION is greatly appreciated: This 67 yo man with h/o HTN, DM, Chol and CVA's is s/p cardiorespiratory arrest and is ventilator dependent. Maintained on insulin's, albuterol, and metoprolol. Know seizure disorder- on Dilantin 200 mg BID. Now admitted from [facility], [place] with reduced responsiveness, fevers. On admission WBC= 18.9 K and urine ZWE=937. Started on ertepenum and Vancomicin. CT of head (reviewed): Old right frontal and b/l cerebellar strokes, moderate, diffuse atrophy, and diffuse microvascular changes. ASHLEY: S/P trache. Neck supple + spontaneous respirations Opens eyes to sternal pressure. [id number]. Full, roving ANGEL's. Corneals +/+. No response to visual threat. 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 Transient worsening due to Toxic-metabolic encephalopathy. SUGGEST: Agree with current management. Continue antibiotics as per ID. Resume/continue enteric feeds Check dilantin level Continue DPH 200 mg q 12 hrs Agree with DNR status- prognosis for functional recovery is grave. Thank you very much, David Groves MD
--- NOTE | 2018-02-20 22:05 | PN ---
Progress Note (short form) - Note Progress Note: patient seen and examined feels ok. no complaints Last Vital Signs Temp Pulse Resp BP Pulse Ox 97.9 F 84 19 132/67 99 02/20/18 09:00 02/20/18 21:26 02/20/18 21:26 02/20/18 15:00 02/20/18 21:26 Cor: RSR, No murmurs, No gallops Lungs: Clear to P&A Abd: Soft, Normal bowel sounds, No organomegaly Ext:No significant edema Abnormal Lab Results 02/19/18 02/19/18 02/20/18 10:10 10:19 07:10 WBC 13.3 H RBC 2.66 L Hgb 7.9 L D Hct 23.7 L PT with INR Fibrinogen Iron 32 L TIBC 131 L Vitamin B12 930 H 02/20/18 07:10 WBC RBC Hgb Hct PT with INR 12.10 H Fibrinogen 575.0 H Iron TIBC Vitamin B12 Home Medication List Medication Instructions Recorded Confirmed Type Albuterol 2.5/Ipratropium 0.5 1 amp IH QID 02/15/18 02/15/18 History [Duoneb -] Insulin Lispro [Humalog] 100 unit SQ BID 02/15/18 02/15/18 History Metoprolol Tartrate 12.5 mg GT DAILY 02/15/18 02/15/18 History Phenytoin 200 mg GT BID 02/15/18 02/15/18 History Active Medications Generic Name Dose Route Start Last Admin Trade Name Freq PRN Reason Stop Dose Admin Acetaminophen 650 mg 02/16/18 12:28 02/17/18 11:44 Tylenol Oral Solution - PO 650 mg Q6H PRN Administration FEVER Enoxaparin Sodium 100 mg 02/20/18 11:30 02/20/18 13:31 Lovenox - SQ 100 mg BID [facility] Administration Sodium Chloride 1,000 mls @ 75 mls/hr 02/15/18 19:45 02/19/18 19:03 1/2 Normal Saline IV 75 mls/hr ASDIR [facility] Administration Vancomycin HCl 1,000 mg/ 250 mls @ 166.667 mls/hr 02/17/18 20:00 02/20/18 20: 37 Dextrose IVPB 166.667 mls/hr Q12H [facility] Administration Ertapenem 1 gm/ Sodium 100 mls @ 100 mls/hr 02/19/18 17:15 02/20/18 13:31 Chloride IVPB 100 mls/hr DAILY [facility] Administration Protocol Insulin Aspart 1 vial 02/15/18 22:00 02/20/18 21:42 Novolog Vial Sliding Scale - SQ 2 units ACHS [facility] Administration Protocol Metoprolol Tartrate 12.5 mg 02/16/18 10:00 02/20/18 11:28 Lopressor - GT 12.5 mg DAILY [facility] Administration Phenytoin Sodium 200 mg 02/15/18 22:00 02/20/18 22:30 Dilantin Oral Suspension - GT 200 mg BID [facility] Administration a/p 67M, chronic respiratory failure (Trach / Vent dependent), CVA, DM, HTN, hyperlipidemia, and seizures. Ad[facility] via the ER from the SNF due to fever, increased tracheal secretions and possible UTI. CXR revealed multilobar infiltrates. On broad spectrum antibiotics. Noted to have mild cholestasis and transaminitis. We have been consulted for left femoral DVT noted on CT scan and rt. gluteal hematoma?? noted on CT vascular U/S-- left common femoral DVT. popliteal,post. tibial. Rt. popliteal and post. tibial DVT discussed with radiology --swelling of rt. gluteus medius with small hematoma Nl PT/PTT/Platelets/renal function hemoglobin stable ct head --chronic occipital infarct. b/l cerebellar infarcts disussed with neuro will start lovenox 100mg sc bid
[2018-02-21] MEDS: SODIUM CHLORIDE 0.45% 1,000 ML IV SCH ×4 (01:30→20:47)
[2018-02-21] MEDS: ENOXAPARIN NA (PORCINE) 100 MG/1 ML DISP.SYRIN SQ SCH ×3 (01:31→21:02)
[2018-02-21] MEDS: INSULIN SLIDING SCALE (NOVOLOG) 1 VIAL SQ SCH ×4 (06:18→21:07)
[2018-02-21] MEDS ORDERED: PT OWN MED DRAWER 7, Y5N ONE ×2 (08:27→10:44)
[2018-02-21] MEDS: VANCOMYCIN 1,000 MG in DEXTROSE 5%-WATER - 250 ML IVPB SCH ×3 (09:36→21:51)
[2018-02-21] MEDS: METOPROLOL TARTRATE 25 MG TABLET (FP) GT SCH (10:47)
[2018-02-21] MEDS: PHENYTOIN 100 MG/4 ML U-D CUP GT SCH ×2 (10:47→21:02)
[2018-02-21] MEDS: ERTAPENEM SODIUM 1 GM in SODIUM CHLORIDE 100 ML IVPB SCH (10:47)
--- NOTE | 2018-02-21 11:02 | PN ---
Progress Note (short form) - Note Progress Note: PULMONARY Vented, poorly responsive. No fevers recorded. Vented on volume assist control. HIDA report pending. Last Vital Signs Temp Pulse Resp BP Pulse Ox 98.7 F 81 22 143/76 99 02/21/18 03:00 02/21/18 03:00 02/21/18 09:10 02/21/18 03:00 02/20/18 21:26 Gen: vented, poorly responsive Heart: RRR Lung: decreased breath sounds at the bases Abd: soft, nontender Ext: no edema CBC, BMP 02/20/18 07:10 02/19/18 10:19 Active Medications Acetaminophen (Tylenol Oral Solution -) 650 mg PO Q6H PRN PRN Reason: FEVER Last Admin: 02/17/18 11:44 Dose: 650 mg Enoxaparin Sodium (Lovenox -) 100 mg SQ BID [facility] Last Admin: 02/21/18 10:48 Dose: 100 mg Sodium Chloride (1/2 Normal Saline) 1,000 mls @ 75 mls/hr IV ASDIR [facility] Last Admin: 02/21/18 01:33 Dose: 75 mls/hr Vancomycin HCl 1,000 mg/ (Dextrose) 250 mls @ 166.667 mls/hr IVPB Q12H [facility] Last Admin: 02/21/18 09:36 Dose: 166.667 mls/hr Ertapenem 1 gm/ Sodium (Chloride) 100 mls @ 100 mls/hr IVPB DAILY [facility] PRN Reason: Protocol Last Admin: 02/21/18 10:47 Dose: 100 mls/hr Insulin Aspart (Novolog Vial Sliding Scale -) 1 vial SQ ACHS [facility] PRN Reason: Protocol Last Admin: 02/21/18 06:18 Dose: 5 units Metoprolol Tartrate (Lopressor -) 12.5 mg GT DAILY [facility] Last Admin: 02/21/18 10:47 Dose: 12.5 mg Phenytoin Sodium (Dilantin Oral Suspension -) 200 mg GT BID [facility] Last Admin: 02/21/18 10:47 Dose: 200 mg A/P Chronic Respiratory Failure h/o CVA Anoxic Encephalopathy UTI Pneumonia Sepsis Bacteremia - continue antibiotics - f/u HIDA scan - enteral feeds - poor candidate for weaning due to mental status - DVT prophylaxis
--- NOTE | 2018-02-21 12:55 | PN ---
Progress Note, Physician - Current Medication List Current Medications: Active Medications Acetaminophen (Tylenol Oral Solution -) 650 mg PO Q6H PRN PRN Reason: FEVER Last Admin: 02/17/18 11:44 Dose: 650 mg Enoxaparin Sodium (Lovenox -) 100 mg SQ BID [facility] Last Admin: 02/21/18 10:48 Dose: 100 mg Sodium Chloride (1/2 Normal Saline) 1,000 mls @ 75 mls/hr IV ASDIR [facility] Last Admin: 02/21/18 01:33 Dose: 75 mls/hr Vancomycin HCl 1,000 mg/ (Dextrose) 250 mls @ 166.667 mls/hr IVPB Q12H [facility] Last Admin: 02/21/18 09:36 Dose: 166.667 mls/hr Ertapenem 1 gm/ Sodium (Chloride) 100 mls @ 100 mls/hr IVPB DAILY [facility] PRN Reason: Protocol Last Admin: 02/21/18 10:47 Dose: 100 mls/hr Insulin Aspart (Novolog Vial Sliding Scale -) 1 vial SQ ACHS [facility] PRN Reason: Protocol Last Admin: 02/21/18 12:13 Dose: 5 units Metoprolol Tartrate (Lopressor -) 12.5 mg GT DAILY [facility] Last Admin: 02/21/18 10:47 Dose: 12.5 mg Phenytoin Sodium (Dilantin Oral Suspension -) 200 mg GT BID [facility] Last Admin: 02/21/18 10:47 Dose: 200 mg - Objective Vital Signs: Vital Signs Temperature 98.7 F 02/21/18 09:00 Pulse Rate 72 02/21/18 09:00 Respiratory Rate 22 02/21/18 09:10 Blood Pressure 129/62 02/21/18 09:00 O2 Sat by Pulse Oximetry (%) 99 02/20/18 21:26 Labs: CBC, BMP 02/20/18 07:10 02/19/18 10:19 INR, PTT INR 1.07 (0.82-1.09) 02/20/18 07:10 Fibrinogen 575.0 mg/dL (238-498) H 02/20/18 07:10 Problem List - Problems (1) Bacteremia Assessment/Plan: on iv vancomycin Microbiology 02/17/18 17:00 Blood - Peripheral Venous Blood Culture - Preliminary Gram Positive Bacillus vacno level before giving tonight dose Code(s): R78.81 - BACTEREMIA (2) UTI (urinary tract infection) Assessment/Plan: Microbiology 02/15/18 Unknown Urine - Urine - Catheterized Urine Culture - Final Escherichia Coli Esbl [employer] Model 02/17/18 17:00 Blood - Peripheral Venous Blood Culture - Preliminary Gram Positive Bacillus on iv antibiotic per ID Code(s): N39.0 - URINARY TRACT INFECTION, SITE NOT SPECIFIED (3) Abnormal LFTs Assessment/Plan: got HIDA scan awaiting results Code(s): R94.5 - ABNORMAL RESULTS OF LIVER FUNCTION STUDIES (4) DVT (deep venous thrombosis) Assessment/Plan: seen by heme started on lovenox Code(s): I82.409 - ACUTE EMBOLISM AND THOMBOS UNSP DEEP VN UNSP LOWER EXTREMITY (5) Respiratory failure Assessment/Plan: trach vent support Code(s): J96.90 - RESPIRATORY FAILURE, UNSP, UNSP W HYPOXIA OR HYPERCAPNIA (6) CVA (cerebral vascular accident) Assessment/Plan: s/p cardiac arrest- anoxic encephalopathy trach vent support g tube for feeds seen by neurology Code(s): I63.9 - CEREBRAL INFARCTION, UNSPECIFIED (7) Seizure disorder Assessment/Plan: on dilantin Code(s): G40.909 - EPILEPSY, UNSP, NOT INTRACTABLE, WITHOUT STATUS EPILEPTICUS
--- NOTE | 2018-02-21 14:25 | PN ---
Progress Note, Physician History of Present Illness: Lethargic No acute distress Temps, WBC down BC SCN, GPR Urine c/s ESBL Sputum mixed - Current Medication List Current Medications: Active Medications Acetaminophen (Tylenol Oral Solution -) 650 mg PO Q6H PRN PRN Reason: FEVER Last Admin: 02/17/18 11:44 Dose: 650 mg Enoxaparin Sodium (Lovenox -) 100 mg SQ BID [facility] Last Admin: 02/21/18 10:48 Dose: 100 mg Sodium Chloride (1/2 Normal Saline) 1,000 mls @ 75 mls/hr IV ASDIR [facility] Last Admin: 02/21/18 01:33 Dose: 75 mls/hr Vancomycin HCl 1,000 mg/ (Dextrose) 250 mls @ 166.667 mls/hr IVPB Q12H [facility] Last Admin: 02/21/18 09:36 Dose: 166.667 mls/hr Ertapenem 1 gm/ Sodium (Chloride) 100 mls @ 100 mls/hr IVPB DAILY [facility] PRN Reason: Protocol Last Admin: 02/21/18 10:47 Dose: 100 mls/hr Insulin Aspart (Novolog Vial Sliding Scale -) 1 vial SQ ACHS [facility] PRN Reason: Protocol Last Admin: 02/21/18 12:13 Dose: 5 units Metoprolol Tartrate (Lopressor -) 12.5 mg GT DAILY [facility] Last Admin: 02/21/18 10:47 Dose: 12.5 mg Phenytoin Sodium (Dilantin Oral Suspension -) 200 mg GT BID [facility] Last Admin: 02/21/18 10:47 Dose: 200 mg - Objective Vital Signs: Vital Signs Temperature 98.7 F 02/21/18 09:00 Pulse Rate 72 02/21/18 09:00 Respiratory Rate 22 02/21/18 09:10 Blood Pressure 129/62 02/21/18 09:00 O2 Sat by Pulse Oximetry (%) 99 02/20/18 21:26 Constitutional: Yes: No Distress Eyes: Yes: Conjunctiva Clear Cardiovascular: Yes: Regular Rate and Rhythm, S1, S2 Respiratory: Yes: Diminished Gastrointestinal: Yes: Normal Bowel Sounds, Soft, Abdomen, Obese. No: Tenderness Edema: Yes Labs: CBC, BMP 02/20/18 07:10 02/19/18 10:19 INR, PTT INR 1.07 (0.82-1.09) 02/20/18 07:10 Fibrinogen 575.0 mg/dL (238-498) H 02/20/18 07:10 Assessment/Plan UTI/ Possible sepsis secondary to UTI +BC SCN, GPR Likely contaminants Chronic Respiratory failure CVA Continue ertapenem. Continue vancomycin Contact precautions
[2018-02-21 17:07] LABS: ALBUMIN 1.4 g/dl (3.4-5.0); ANION GAP 6 (8-16); BLOOD UREA NITROGEN 35 mg/dL (7-18); CALCIUM 7.5 mg/dL (8.5-10.1); CHLORIDE 102 mmol/L (98-107); CO2 27 mmol/L (21-32); CREATININE 0.6 mg/dL (0.7-1.3); GLUCOSE,RANDOM 213 mg/dL (74-106); POTASSIUM 4.4 mmol/L (3.5-5.1); SGOT/AST 39 U/L (15-37); SGPT/ALT 42 U/L (12-78); SODIUM 135 mmol/L (136-145)
[2018-02-21 17:10] LABS: ALK PHOS 188 U/L (45-117); BILIRUBIN,TOTAL 0.1 mg/dL (0.2-1.0); TOT PROT 5.1 g/dl (6.4-8.2)
[2018-02-21] MEDS: ACETAMINOPHEN 650 MG/20.3 ML ORAL SOLUTION (CUPS) PO PRN (20:47)
[2018-02-21] MEDS: FERROUS SO4 300 MG/5 ML ORAL SOLN UNIT DOSE CUPS GT SCH (21:02)
[2018-02-21] MEDS ORDERED: INSULIN (NOVOLOG) ASPART 100 UNITS/ML 10ML VIAL ONE (21:04)
--- NOTE | 2018-02-21 21:24 | PN ---
Progress Note (short form) - Note Progress Note: addendum diagnosis: Sepsis in the setting of ventilator pneumonia Problem List - Problems (1) Abnormal LFTs Code(s): R94.5 - ABNORMAL RESULTS OF LIVER FUNCTION STUDIES (2) Fever Code(s): R50.9 - FEVER, UNSPECIFIED (3) Pneumonia Code(s): J18.9 - PNEUMONIA, UNSPECIFIED ORGANISM Qualifiers: Pneumonia type: due to unspecified organism Laterality: bilateral Lung location: unspecified part of lung Qualified Code(s): J18.9 - Pneumonia, unspecified organism (4) Respiratory failure Code(s): J96.90 - RESPIRATORY FAILURE, UNSP, UNSP W HYPOXIA OR HYPERCAPNIA
[2018-02-22] MEDS: INSULIN SLIDING SCALE (NOVOLOG) 1 VIAL SQ SCH ×4 (06:20→22:49)
[2018-02-22 07:21] LABS: BASO % 0.7 % (0-2.0); HEMATOCRIT 23.3 % (35.4-49); HEMOGLOBIN 7.9 GM/dL (11.7-16.9); LYMPH % 11.4 % (8-40); MCH 30.4 pg (25.7-33.7); MCHC 33.9 g/dl (32.0-35.9); MEAN CELL VOLUME 89.8 fl (80-96); MEAN PLT VOLUME 7.7 fl (7.5-11.1); MONO % 5.5 % (3.8-10.2); NEUT % 79.4 % (42.8-82.8); PLATELET COUNT 357 K/MM3 (134-434); WHITE BLOOD COUNT 12.4 K/mm3 (4.0-10.0)
[2018-02-22 07:32] LABS: ALBUMIN 1.4 g/dl (3.4-5.0); ANION GAP 7 (8-16); BLOOD UREA NITROGEN 35 mg/dL (7-18); CALCIUM 7.4 mg/dL (8.5-10.1); CHLORIDE 102 mmol/L (98-107); CO2 25 mmol/L (21-32); CREATININE 0.6 mg/dL (0.7-1.3); GLUCOSE,RANDOM 244 mg/dL (74-106); POTASSIUM 4.7 mmol/L (3.5-5.1); SGOT/AST 37 U/L (15-37); SGPT/ALT 40 U/L (12-78); SODIUM 134 mmol/L (136-145)
[2018-02-22 07:34] LABS: ALK PHOS 198 U/L (45-117); BILIRUBIN,TOTAL 0.2 mg/dL (0.2-1.0); TOT PROT 4.9 g/dl (6.4-8.2)
[2018-02-22] MEDS: VANCOMYCIN 1,000 MG in DEXTROSE 5%-WATER - 250 ML IVPB SCH (09:32)
[2018-02-22] MEDS ORDERED: PT OWN MED DRAWER 7, Y5N ONE ×2 (10:31→22:30)
[2018-02-22] MEDS: PHENYTOIN 100 MG/4 ML U-D CUP GT SCH ×2 (10:34→22:45)
[2018-02-22] MEDS: METOPROLOL TARTRATE 25 MG TABLET (FP) GT SCH (10:34)
[2018-02-22] MEDS: ENOXAPARIN NA (PORCINE) 100 MG/1 ML DISP.SYRIN SQ SCH ×2 (10:34→22:45)
[2018-02-22] MEDS: FERROUS SO4 300 MG/5 ML ORAL SOLN UNIT DOSE CUPS GT SCH ×2 (10:34→22:44)
[2018-02-22] MEDS: ERTAPENEM SODIUM 1 GM in SODIUM CHLORIDE 100 ML IVPB SCH (10:34)
--- NOTE | 2018-02-22 11:13 | PN ---
Progress Note, Physician - Current Medication List Current Medications: Active Medications Acetaminophen (Tylenol Oral Solution -) 650 mg PO Q6H PRN PRN Reason: FEVER Last Admin: 02/21/18 20:47 Dose: 650 mg Enoxaparin Sodium (Lovenox -) 100 mg SQ BID [facility] Last Admin: 02/22/18 10:34 Dose: 100 mg Ferrous Sulfate (Feosol) 300 mg GT BID [facility] Last Admin: 02/22/18 10:34 Dose: 300 mg Sodium Chloride (1/2 Normal Saline) 1,000 mls @ 75 mls/hr IV ASDIR [facility] Last Admin: 02/21/18 20:47 Dose: 75 mls/hr Ertapenem 1 gm/ Sodium (Chloride) 100 mls @ 100 mls/hr IVPB DAILY [facility] PRN Reason: Protocol Last Admin: 02/22/18 10:34 Dose: 100 mls/hr Insulin Aspart (Novolog Vial Sliding Scale -) 1 vial SQ ACHS [facility] PRN Reason: Protocol Last Admin: 02/22/18 06:20 Dose: 5 units Metoprolol Tartrate (Lopressor -) 12.5 mg GT DAILY [facility] Last Admin: 02/22/18 10:34 Dose: 12.5 mg Phenytoin Sodium (Dilantin Oral Suspension -) 200 mg GT BID [facility] Last Admin: 02/22/18 10:34 Dose: 200 mg - Objective Vital Signs: Vital Signs Temperature 97.9 F 02/22/18 06:00 Pulse Rate 75 02/22/18 06:00 Respiratory Rate 19 02/22/18 09:02 Blood Pressure 144/74 02/22/18 06:00 O2 Sat by Pulse Oximetry (%) 100 02/21/18 22:00 Cardiovascular: Yes: S1, S2 Respiratory: Yes: Mechanically Ventilated Gastrointestinal: Yes: Normal Bowel Sounds, Soft Edema: Yes Labs: CBC, BMP 02/22/18 07:00 02/22/18 07:00 INR, PTT INR 1.07 (0.82-1.09) 02/20/18 07:10 Fibrinogen 575.0 mg/dL (238-498) H 02/20/18 07:10 Problem List - Problems (1) Abnormal LFTs Code(s): R94.5 - ABNORMAL RESULTS OF LIVER FUNCTION STUDIES (2) Pneumonia Code(s): J18.9 - PNEUMONIA, UNSPECIFIED ORGANISM Qualifiers: Pneumonia type: due to unspecified organism Laterality: bilateral Lung location: unspecified part of lung Qualified Code(s): J18.9 - Pneumonia, unspecified organism (3) Respiratory failure Code(s): J96.90 - RESPIRATORY FAILURE, UNSP, UNSP W HYPOXIA OR HYPERCAPNIA (4) Diabetes Code(s): E11.9 - TYPE 2 DIABETES MELLITUS WITHOUT COMPLICATIONS (5) Anemia Code(s): D64.9 - ANEMIA, UNSPECIFIED (6) DVT (deep venous thrombosis) Code(s): I82.409 - ACUTE EMBOLISM AND THOMBOS UNSP DEEP VN UNSP LOWER EXTREMITY (7) Hematoma Code(s): T14.8XXA - OTHER INJURY OF UNSPECIFIED BODY REGION, INITIAL ENCOUNTER Assessment/Plan - Problems (1) Bacteremia Assessment/Plan: on iv vancomycin and etrapenem Microbiology 02/17/18 17:00 Blood - Peripheral Venous Blood Culture - Preliminary Gram Positive Bacillus vacno level before giving tonight dose Code(s): R78.81 - BACTEREMIA (2) UTI (urinary tract infection) Assessment/Plan: Microbiology 02/15/18 Unknown Urine - Urine - Catheterized Urine Culture - Final Escherichia Coli Esbl [employer] Farmer 02/17/18 17:00 Blood - Peripheral Venous Blood Culture - Preliminary Gram Positive Bacillus on iv antibiotic per ID Code(s): N39.0 - URINARY TRACT INFECTION, SITE NOT SPECIFIED (3) Abnormal LFTs Assessment/Plan: got HIDA scan awaiting results Code(s): R94.5 - ABNORMAL RESULTS OF LIVER FUNCTION STUDIES (4) DVT (deep venous thrombosis) Assessment/Plan: seen by mihaela started on lovenox Code(s): I82.409 - ACUTE EMBOLISM AND THOMBOS UNSP DEEP VN UNSP LOWER EXTREMITY (5) Respiratory failure Assessment/Plan: trach vent support Code(s): J96.90 - RESPIRATORY FAILURE, UNSP, UNSP W HYPOXIA OR HYPERCAPNIA (6) CVA (cerebral vascular accident) Assessment/Plan: s/p cardiac arrest- anoxic encephalopathy trach vent support g tube for feeds seen by neurology Code(s): I63.9 - CEREBRAL INFARCTION, UNSPECIFIED (7) Seizure disorder Assessment/Plan: on dilantin Code(s): G40.909 - EPILEPSY, UNSP, NOT INTRACTABLE, WITHOUT STATUS EPILEPTICUS (8) Anemia Assessment/Plan: Transfuse prbc monitor
--- NOTE | 2018-02-22 12:27 | PN ---
Progress Note, Physician History of Present Illness: Lethargic No acute distress Temps, WBC down BC SCN, GPR Urine c/s ESBL Sputum mixed Vanco held ( elevated level) - Current Medication List Current Medications: Active Medications Acetaminophen (Tylenol Oral Solution -) 650 mg PO Q6H PRN PRN Reason: FEVER Last Admin: 02/21/18 20:47 Dose: 650 mg Enoxaparin Sodium (Lovenox -) 100 mg SQ BID [facility] Last Admin: 02/22/18 10:34 Dose: 100 mg Ferrous Sulfate (Feosol) 300 mg GT BID [facility] Last Admin: 02/22/18 10:34 Dose: 300 mg Furosemide (Lasix Injection -) 40 mg IVPUSH ONCE ONE Stop: 02/22/18 11:16 Sodium Chloride (1/2 Normal Saline) 1,000 mls @ 75 mls/hr IV ASDIR [facility] Last Admin: 02/21/18 20:47 Dose: 75 mls/hr Ertapenem 1 gm/ Sodium (Chloride) 100 mls @ 100 mls/hr IVPB DAILY [facility] PRN Reason: Protocol Last Admin: 02/22/18 10:34 Dose: 100 mls/hr Insulin Aspart (Novolog Vial Sliding Scale -) 1 vial SQ ACHS [facility] PRN Reason: Protocol Last Admin: 02/22/18 12:17 Dose: 5 units Metoprolol Tartrate (Lopressor -) 12.5 mg GT DAILY [facility] Last Admin: 02/22/18 10:34 Dose: 12.5 mg Phenytoin Sodium (Dilantin Oral Suspension -) 200 mg GT BID [facility] Last Admin: 02/22/18 10:34 Dose: 200 mg - Objective Vital Signs: Vital Signs Temperature 97.9 F 02/22/18 06:00 Pulse Rate 75 02/22/18 06:00 Respiratory Rate 19 02/22/18 09:02 Blood Pressure 144/74 02/22/18 06:00 O2 Sat by Pulse Oximetry (%) 100 02/21/18 22:00 Constitutional: Yes: No Distress Eyes: Yes: Conjunctiva Clear Cardiovascular: Yes: Regular Rate and Rhythm, S1, S2 Respiratory: Yes: Diminished Gastrointestinal: Yes: Normal Bowel Sounds, Soft. No: Tenderness Edema: Yes Labs: CBC, BMP 02/22/18 07:00 02/22/18 07:00 INR, PTT INR 1.07 (0.82-1.09) 02/20/18 07:10 Fibrinogen 575.0 mg/dL (238-498) H 02/20/18 07:10 Assessment/Plan UTI/ Possible sepsis secondary to UTI +BC SCN, GPR Chronic Respiratory failure CVA Continue ertapenem. Hold vancomycin Contact precautions
--- NOTE | 2018-02-22 12:42 | PN ---
Progress Note (short form) - Note Progress Note: PULMONARY Vented, poorly responsive. No fevers recorded. Vented on volume assist control. Last Vital Signs Temp Pulse Resp BP Pulse Ox 97.9 F 75 20 144/74 100 02/22/18 06:00 02/22/18 06:00 02/22/18 12:34 02/22/18 06:00 02/21/18 22:00 Gen: vented, poorly responsive Heart: RRR Lung: decreased breath sounds at the bases Abd: soft, nontender Ext: no edema CBC, BMP 02/22/18 07:00 02/22/18 07:00 Active Medications Acetaminophen (Tylenol Oral Solution -) 650 mg PO Q6H PRN PRN Reason: FEVER Last Admin: 02/21/18 20:47 Dose: 650 mg Enoxaparin Sodium (Lovenox -) 100 mg SQ BID [facility] Last Admin: 02/22/18 10:34 Dose: 100 mg Ferrous Sulfate (Feosol) 300 mg GT BID [facility] Last Admin: 02/22/18 10:34 Dose: 300 mg Furosemide (Lasix Injection -) 40 mg IVPUSH ONCE ONE Stop: 02/22/18 13:01 Sodium Chloride (1/2 Normal Saline) 1,000 mls @ 75 mls/hr IV [facility]IR [facility] Last Admin: 02/21/18 20:47 Dose: 75 mls/hr Ertapenem 1 gm/ Sodium (Chloride) 100 mls @ 100 mls/hr IVPB DAILY [facility] PRN Reason: Protocol Last Admin: 02/22/18 10:34 Dose: 100 mls/hr Insulin Aspart (Novolog Vial Sliding Scale -) 1 vial SQ ACHS [facility] PRN Reason: Protocol Last Admin: 02/22/18 12:17 Dose: 5 units Metoprolol Tartrate (Lopressor -) 12.5 mg GT DAILY [facility] Last Admin: 02/22/18 10:34 Dose: 12.5 mg Phenytoin Sodium (Dilantin Oral Suspension -) 200 mg GT BID [facility] Last Admin: 02/22/18 10:34 Dose: 200 mg A/P Chronic Respiratory Failure h/o CVA Anoxic Encephalopathy UTI Pneumonia Sepsis Bacteremia - continue antibiotics - enteral feeds - poor candidate for weaning due to mental status, continue volume assist control - DVT prophylaxis
[2018-02-22] MEDS ORDERED: FUROSEMIDE 40 MG/4 ML INJECTABLE VIAL IVPUSH ONE ×2 (13:00→20:30)
--- NOTE | 2018-02-22 14:34 | PN ---
Progress Note, Physician History of Present Illness: Clinically the same. No stigmata of gastrointestinal blood loss. No melena , hematochezia, hematemesis. Remains noncommunicative. The abdomen is soft, nondistended, with normal bowel sounds. - Current Medication List Current Medications: Active Medications Acetaminophen (Tylenol Oral Solution -) 650 mg PO Q6H PRN PRN Reason: FEVER Last Admin: 02/21/18 20:47 Dose: 650 mg Enoxaparin Sodium (Lovenox -) 100 mg SQ BID [facility] Last Admin: 02/22/18 10:34 Dose: 100 mg Ferrous Sulfate (Feosol) 300 mg GT BID [facility] Last Admin: 02/22/18 10:34 Dose: 300 mg Sodium Chloride (1/2 Normal Saline) 1,000 mls @ 75 mls/hr IV ASDIR [facility] Last Admin: 02/21/18 20:47 Dose: 75 mls/hr Ertapenem 1 gm/ Sodium (Chloride) 100 mls @ 100 mls/hr IVPB DAILY [facility] PRN Reason: Protocol Last Admin: 02/22/18 10:34 Dose: 100 mls/hr Insulin Aspart (Novolog Vial Sliding Scale -) 1 vial SQ ACHS [facility] PRN Reason: Protocol Last Admin: 02/22/18 12:17 Dose: 5 units Metoprolol Tartrate (Lopressor -) 12.5 mg GT DAILY [facility] Last Admin: 02/22/18 10:34 Dose: 12.5 mg Phenytoin Sodium (Dilantin Oral Suspension -) 200 mg GT BID [facility] Last Admin: 02/22/18 10:34 Dose: 200 mg - Objective Vital Signs: Vital Signs Temperature 97.9 F 02/22/18 06:00 Pulse Rate 75 02/22/18 06:00 Respiratory Rate 20 02/22/18 12:34 Blood Pressure 144/74 02/22/18 06:00 O2 Sat by Pulse Oximetry (%) 100 02/21/18 22:00 Constitutional: Yes: Calm Labs: CBC, BMP 02/22/18 07:00 02/22/18 07:00 INR, PTT INR 1.07 (0.82-1.09) 02/20/18 07:10 Fibrinogen 575.0 mg/dL (238-498) H 02/20/18 07:10 Laboratory Last Values WBC 12.4 K/mm3 (4.0-10.0) H 02/22/18 07:00 Corrected WBC (auto) Cancelled 02/17/18 07:00 RBC 2.60 M/mm3 (4.00-5.60) L 02/22/18 07:00 Hgb 7.9 GM/dL (11.7-16.9) L 02/22/18 07:00 Hct 23.3 % (35.4-49) L 02/22/18 07:00 MCV 89.8 fl (80-96) 02/22/18 07:00 MCH 30.4 pg (25.7-33.7) 02/22/18 07:00 MCHC 33.9 g/dl (32.0-35.9) 02/22/18 07:00 RDW 16.0 % (11.9-15.9) H 02/22/18 07:00 Plt Count 357 K/MM3 (134-434) D 02/22/18 07:00 MPV 7.7 fl (7.5-11.1) 02/22/18 07:00 Neutrophils % 79.4 % (42.8-82.8) 02/22/18 07:00 Neutrophils % (Manual) 76.5 % (42.8-82.8) 02/20/18 07:10 Band Neutrophils % 0.0 % 02/20/18 07:10 Lymphocytes % 11.4 % (8-40) D 02/22/18 07:00 Lymphocytes % (Manual) 13.3 % (8-40) 02/20/18 07:10 Monocytes % 5.5 % (3.8-10.2) 02/22/18 07:00 Monocytes % (Manual) 6 % (3.8-10.2) 02/20/18 07:10 Eosinophils % 3.0 % (0-4.5) 02/22/18 07:00 Eosinophils % (Manual) 3.1 % (0-4.5) 02/20/18 07:10 Basophils % 0.7 % (0-2.0) 02/22/18 07:00 Basophils % (Manual) 0.0 % (0-2.0) 02/20/18 07:10 Myelocytes % (Man) 0 % (0-2) 02/20/18 07:10 Promyelocytes % (Man) 0 % (0-2) 02/20/18 07:10 Blast Cells % (Manual) 0 % (0-0) 02/20/18 07:10 Nucleated RBC % 0 % (0-0) 02/20/18 07:10 Metamyelocytes 1 % (0-2) 02/20/18 07:10 Manual Slide Review Cancelled 02/17/18 07:00 Hypochromia 0 02/20/18 07:10 Toxic Granulation 0 02/20/18 07:10 [place]ohle Bodies 0 02/20/18 07:10 Platelet Estimate Normal 02/20/18 07:10 Platelet Comment Cancelled 02/17/18 07:00 Polychromasia 0 02/20/18 07:10 Poikilocytosis 0 02/20/18 07:10 Basophilic Stippling 0 02/20/18 07:10 Anisocytosis 0 02/20/18 07:10 Microcytosis 0 02/20/18 07:10 Macrocytosis 0 02/20/18 07:10 Spherocytes 0 02/20/18 07:10 Sickle Cells 0 02/20/18 07:10 Target Cells 0 02/20/18 07:10 Tear Drop Cells 0 02/20/18 07:10 Ovalocytes 0 02/20/18 07:10 Stomatocytes 0 02/20/18 07:10 Helmet Cells 0 02/20/18 07:10 [place] Bodies 0 02/20/18 07:10 [place] Rings 0 02/20/18 07:10 [place] Cells 0 02/20/18 07:10 Acanthocytes (Spur) 0 02/20/18 07:10 [place] 0 02/20/18 07:10 Fragmented RBCs 0 02/20/18 07:10 Schistocytes 0 02/20/18 07:10 PT with INR 12.10 SEC (9.98-11.88) H 02/20/18 07:10 INR 1.07 (0.82-1.09) 02/20/18 07:10 PTT (Actin FS) 27.1 SECONDS (26.9-34.4) 02/20/18 07:10 Fibrinogen 575.0 mg/dL (238-498) H 02/20/18 07:10 VBG pH 7.30 (7.32-7.42) L 02/15/18 12:56 POC VBG pCO2 56.4 mmHg (38-52) H 02/15/18 12:56 POC VBG pO2 39.5 mmHg (28-48) 02/15/18 12:56 Mixed VBG HCO3 26.7 meq/L (19-25) H 02/15/18 12:56 Sodium 134 mmol/L (136-145) L 02/22/18 07:00 Potassium 4.7 mmol/L (3.5-5.1) 02/22/18 07:00 Chloride 102 mmol/L (98-107) 02/22/18 07:00 Carbon Dioxide 25 mmol/L (21-32) 02/22/18 07:00 Anion Gap 7 (8-16) L 02/22/18 07:00 BUN 35 mg/dL (7-18) H 02/22/18 07:00 Creatinine 0.6 mg/dL (0.7-1.3) L 02/22/18 07:00 Creat Clearance w eGFR > 60 (>60) 02/22/18 07:00 POC Glucometer 257 UNITS (80-120) 02/22/18 12:14 Random Glucose 244 mg/dL (74-106) H 02/22/18 07:00 Lactic Acid 1.7 mmol/L (0.0-2.0) 02/15/18 19:30 Calcium 7.4 mg/dL (8.5-10.1) L 02/22/18 07:00 Phosphorus 3.9 mg/dL (2.5-4.9) 02/16/18 07:25 Magnesium 2.8 mg/dL (1.8-2.4) H 02/16/18 07:25 Iron 32 ug/dL (38-169) L 02/19/18 10:10 TIBC 131 ug/dL (250-450) L 02/19/18 10:10 Iron Saturation 24 % (15-55) 02/19/18 10:10 Ferritin 1409.718 ng/ml (16.4-293.9) H 02/19/18 10:19 Total Bilirubin 0.2 mg/dL (0.2-1.0) D 02/22/18 07:00 AST 37 U/L (15-37) 02/22/18 07:00 ALT 40 U/L (12-78) 02/22/18 07:00 Alkaline Phosphatase 198 U/L (45-117) H 02/22/18 07:00 Creatine Kinase 158 IU/L (39-308) 02/15/18 13:56 Creatine Kinase Index 0.6 % (0.0-5.0) 02/15/18 13:56 CK-MB (CK-2) < 1.000 ng/mL (0.5-3.6) 02/15/18 13:56 Troponin I 0.02 ng/ml (0.00-0.05) 02/16/18 07:25 C-Reactive Protein 25.5 MG/DL (0.00-0.3) H 02/16/18 07:25 Total Protein 4.9 g/dl (6.4-8.2) L 02/22/18 07:00 Albumin 1.4 g/dl (3.4-5.0) L 02/22/18 07:00 Vitamin B12 930 pg/ml (180-914) H 02/19/18 10:19 Urine Color Dkyellow 02/15/18 12:56 Urine Appearance Cloudy 02/15/18 12:56 Urine pH 5.0 (5.0-8.0) 02/15/18 12:56 Ur Specific [place] 1.021 (1.001-1.035) 02/15/18 12:56 Urine Protein 2+ (NEGATIVE) H 02/15/18 12:56 Urine Glucose (UA) Negative (NEGATIVE) 02/15/18 12:56 Urine Ketones Negative (NEGATIVE) 02/15/18 12:56 Urine Blood 1+ (NEGATIVE) H 02/15/18 12:56 Urine Nitrite Negative (NEGATIVE) 02/15/18 12:56 Urine Bilirubin Negative (<2.0 mg/dL) 02/15/18 12:56 Urine Urobilinogen 2.0 mg/dL (0.2-1.0) 02/15/18 12:56 Ur Leukocyte Esterase 3+ (NEGATIVE) H 02/15/18 12:56 Urine WBC (Auto) 654 /hpf (3-5) 02/15/18 12:56 Urine RBC (Auto) 15 /hpf (0-3) 02/15/18 12:56 Ur Epithelial Cells Rare /HPF (FEW) 02/15/18 12:56 Urine Bacteria Rare /hpf (NONE SEEN) 02/15/18 12:56 Urine Mucus Rare 02/15/18 12:56 Urine Yeast Few 02/15/18 12:56 Vancomycin Pre-Dose 27.332 ug/ml (5.0-10.0) H* 02/21/18 19:15 Phenytoin 14.0 ug/ml (10.0-20.0) D 02/21/18 07:25 Levetiracetam 10.6 MCG/ML (10.0-40.0) 02/15/18 13:42 Blood Type A NEGATIVE 02/22/18 11:45 Antibody Screen Negative 02/22/18 11:45 Crossmatch See Detail 02/22/18 11:45 Problem List - Problems (1) Alkaline phosphatase elevation Code(s): R74.8 - ABNORMAL LEVELS OF OTHER SERUM ENZYMES (2) Cholestasis Code(s): K83.1 - OBSTRUCTION OF BILE DUCT (3) Abnormal LFTs Code(s): R94.5 - ABNORMAL RESULTS OF LIVER FUNCTION STUDIES Assessment/Plan No overt signs of gastrointestinal blood loss. Normocytic, normochromic anemia is likely due to bone marrow suppression. Advocate conservative approach. We will continue to monitor.
[2018-02-22] MEDS ORDERED: INSULIN (NOVOLOG) ASPART 100 UNITS/ML 10ML VIAL ONE (18:09)
[2018-02-23] MEDS: INSULIN SLIDING SCALE (NOVOLOG) 1 VIAL SQ SCH ×4 (06:50→21:01)
[2018-02-23] MEDS: SODIUM CHLORIDE 0.45% 1,000 ML IV SCH ×2 (06:56→22:49)
--- NOTE | 2018-02-23 07:56 | PN ---
Progress Note, Physician - Current Medication List Current Medications: Active Medications Acetaminophen (Tylenol Oral Solution -) 650 mg PO Q6H PRN PRN Reason: FEVER Last Admin: 02/21/18 20:47 Dose: 650 mg Enoxaparin Sodium (Lovenox -) 100 mg SQ BID [facility] Last Admin: 02/22/18 22:45 Dose: 100 mg Ferrous Sulfate (Feosol) 300 mg GT BID [facility] Last Admin: 02/22/18 22:44 Dose: 300 mg Sodium Chloride (1/2 Normal Saline) 1,000 mls @ 75 mls/hr IV ASDIR [facility] Last Admin: 02/23/18 06:56 Dose: 75 mls/hr Ertapenem 1 gm/ Sodium (Chloride) 100 mls @ 100 mls/hr IVPB DAILY [facility] PRN Reason: Protocol Last Admin: 02/22/18 10:34 Dose: 100 mls/hr Insulin Aspart (Novolog Vial Sliding Scale -) 1 vial SQ ACHS [facility] PRN Reason: Protocol Last Admin: 02/23/18 06:50 Dose: 5 units Metoprolol Tartrate (Lopressor -) 12.5 mg GT DAILY [facility] Last Admin: 02/22/18 10:34 Dose: 12.5 mg Phenytoin Sodium (Dilantin Oral Suspension -) 200 mg GT BID [facility] Last Admin: 02/22/18 22:45 Dose: 200 mg - Objective Vital Signs: Vital Signs Temperature 97.7 F 02/23/18 06:00 Pulse Rate 76 02/23/18 06:00 Respiratory Rate 20 02/23/18 06:24 Blood Pressure 149/73 02/23/18 06:00 O2 Sat by Pulse Oximetry (%) 100 02/22/18 21:00 Cardiovascular: Yes: S1, S2 Respiratory: Yes: Mechanically Ventilated, Rhonchi Gastrointestinal: Yes: Normal Bowel Sounds, Soft Labs: CBC, BMP 02/22/18 07:00 02/22/18 07:00 INR, PTT INR 1.07 (0.82-1.09) 02/20/18 07:10 Fibrinogen 575.0 mg/dL (238-498) H 02/20/18 07:10 Problem List - Problems (1) Abnormal LFTs Assessment/Plan: monitor w/u in progress gi on case Code(s): R94.5 - ABNORMAL RESULTS OF LIVER FUNCTION STUDIES (2) Pneumonia Assessment/Plan: iv abx cultures pulm and id on board Code(s): J18.9 - PNEUMONIA, UNSPECIFIED ORGANISM Qualifiers: Pneumonia type: due to unspecified organism Laterality: bilateral Lung location: unspecified part of lung Qualified Code(s): J18.9 - Pneumonia, unspecified organism (3) Respiratory failure Assessment/Plan: vent setting per pulm Code(s): J96.90 - RESPIRATORY FAILURE, UNSP, UNSP W HYPOXIA OR HYPERCAPNIA (4) Diabetes Assessment/Plan: bgm with coverage Code(s): E11.9 - TYPE 2 DIABETES MELLITUS WITHOUT COMPLICATIONS (5) Anemia Assessment/Plan: monitor hem consult ON LOVENOX S/P PRBC Code(s): D64.9 - ANEMIA, UNSPECIFIED (6) DVT (deep venous thrombosis) Assessment/Plan: -venous duplex -vascular--- --on lovenox Code(s): I82.409 - ACUTE EMBOLISM AND THOMBOS UNSP DEEP VN UNSP LOWER EXTREMITY (7) Hematoma Assessment/Plan: surgical consult--monitor Code(s): T14.8XXA - OTHER INJURY OF UNSPECIFIED BODY REGION, INITIAL ENCOUNTER Assessment/Plan - Problems (1) Bacteremia Assessment/Plan: on iv vancomycin and etrapenem Microbiology 02/17/18 17:00 Blood - Peripheral Venous Blood Culture - Preliminary Gram Positive Bacillus vacno level before giving tonight dose Code(s): R78.81 - BACTEREMIA (2) UTI (urinary tract infection) Assessment/Plan: Microbiology 02/15/18 Unknown Urine - Urine - Catheterized Urine Culture - Final Escherichia Coli 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 02/17/18 17:00 Blood - Peripheral Venous Blood Culture - Preliminary Gram Positive Bacillus on iv antibiotic per ID Code(s): N39.0 - URINARY TRACT INFECTION, SITE NOT SPECIFIED (3) Abnormal LFTs Assessment/Plan: got HIDA scan awaiting results Code(s): R94.5 - ABNORMAL RESULTS OF LIVER FUNCTION STUDIES (4) DVT (deep venous thrombosis) Assessment/Plan: seen by mihaela started on lovenox Code(s): I82.409 - ACUTE EMBOLISM AND THOMBOS UNSP DEEP VN UNSP LOWER EXTREMITY (5) Respiratory failure Assessment/Plan: trach vent support Code(s): J96.90 - RESPIRATORY FAILURE, UNSP, UNSP W HYPOXIA OR HYPERCAPNIA (6) CVA (cerebral vascular accident) Assessment/Plan: s/p cardiac arrest- anoxic encephalopathy trach vent support g tube for feeds seen by neurology Code(s): I63.9 - CEREBRAL INFARCTION, UNSPECIFIED (7) Seizure disorder Assessment/Plan: on dilantin Code(s): G40.909 - EPILEPSY, UNSP, NOT INTRACTABLE, WITHOUT STATUS EPILEPTICUS (8) Anemia Assessment/Plan: Transfuse prbc monitor
[2018-02-23 08:47] LABS: HEMATOCRIT 30.8 % (35.4-49); HEMOGLOBIN 10.2 GM/dL (11.7-16.9); MCH 29.7 pg (25.7-33.7); MCHC 33.2 g/dl (32.0-35.9); MEAN CELL VOLUME 89.2 fl (80-96); MEAN PLT VOLUME 8.1 fl (7.5-11.1); RBC 3.45 M/mm3 (4.00-5.60); RDW 16.1 % (11.9-15.9)
[2018-02-23 09:49] LABS: CHLORIDE 102 mmol/L (98-107); POTASSIUM 5.2 mmol/L (3.5-5.1); SODIUM 135 mmol/L (136-145)
[2018-02-23 10:06] LABS: ALBUMIN 1.5 g/dl (3.4-5.0); ALK PHOS 250 U/L (45-117); ANION GAP 9 (8-16); BILIRUBIN,TOTAL 0.3 mg/dL (0.2-1.0); BLOOD UREA NITROGEN 38 mg/dL (7-18); CALCIUM 7.7 mg/dL (8.5-10.1); CO2 24 mmol/L (21-32); CREATININE 0.6 mg/dL (0.7-1.3); GLUCOSE,RANDOM 220 mg/dL (74-106); SGOT/AST 58 U/L (15-37); SGPT/ALT 46 U/L (12-78); TOT PROT 5.3 g/dl (6.4-8.2)
[2018-02-23] MEDS ORDERED: ACETAMINOPHEN 325 MG TABLET (FP) ONE (10:24)
[2018-02-23] MEDS ORDERED: PT OWN MED DRAWER 7, Y5N ONE (10:25)
[2018-02-23] MEDS: FERROUS SO4 300 MG/5 ML ORAL SOLN UNIT DOSE CUPS GT SCH ×2 (10:28→22:49)
[2018-02-23] MEDS: METOPROLOL TARTRATE 25 MG TABLET (FP) GT SCH (10:28)
[2018-02-23] MEDS: ERTAPENEM SODIUM 1 GM in SODIUM CHLORIDE 100 ML IVPB SCH (10:28)
[2018-02-23] MEDS: PHENYTOIN 100 MG/4 ML U-D CUP GT SCH ×2 (10:29→22:49)
[2018-02-23] MEDS: ENOXAPARIN NA (PORCINE) 100 MG/1 ML DISP.SYRIN SQ SCH ×2 (10:29→22:49)
--- NOTE | 2018-02-23 10:49 | PN ---
Progress Note (short form) - Note Progress Note: patient seen and examined chart reviewed ROS unobtainable General: In a vegetative state Cor:RRR Lungs: Clear to P&A Abd: Soft, Normal bowel sounds, No organomegaly Ext:mild edema Last Vital Signs Temp Pulse Resp BP Pulse Ox 97.7 F 76 21 149/73 100 02/23/18 06:00 02/23/18 06:00 02/23/18 10:28 02/23/18 06:00 02/22/18 21:00 CBC, BMP 02/23/18 08:05 02/23/18 08:05 Current Medications Generic Name Dose Route Start Last Admin Trade Name Freq PRN Reason Stop Dose Admin Acetaminophen 650 mg 02/16/18 12:28 02/21/18 20:47 Tylenol Oral Solution - PO 650 mg Q6H PRN Administration FEVER Enoxaparin Sodium 100 mg 02/20/18 11:30 02/23/18 10:29 Lovenox - SQ 100 mg BID [facility] Administration Ferrous Sulfate 300 mg 02/21/18 22:00 02/23/18 10:28 Feosol GT 300 mg BID [facility] Administration Sodium Chloride 1,000 mls @ 75 mls/hr 02/15/18 19:45 02/23/18 06:56 1/2 Normal Saline IV 75 mls/hr ASDIR [facility] Administration Ertapenem 1 gm/ Sodium 100 mls @ 100 mls/hr 02/19/18 17:15 02/23/18 10:28 Chloride IVPB 100 mls/hr DAILY [facility] Administration Protocol Insulin Aspart 1 vial 02/15/18 22:00 02/23/18 06:50 Novolog Vial Sliding Scale - SQ 5 units ACHS [facility] Administration Protocol Metoprolol Tartrate 12.5 mg 02/16/18 10:00 02/23/18 10:28 Lopressor - GT 12.5 mg DAILY [facility] Administration Phenytoin Sodium 200 mg 02/15/18 22:00 02/23/18 10:29 Dilantin Oral Suspension - GT 200 mg BID [facility] Administration DVT Anemia Gluteal Hematoma-- stable Anoxic brain injury Vent dependant -cw Lovenox 100mg bid -ACD/ACI likely, supportive transfusion as needed
[2018-02-23 10:55] LABS: PLATELET COUNT 330 K/MM3 (134-434); PLATELET ESTIMATE ADEQUATE
--- NOTE | 2018-02-23 11:45 | PN ---
Progress Note (short form) - Note Progress Note: PULMONARY Vented, poorly responsive. Low grade temps overnight. Vented on volume assist control. Last Vital Signs Temp Pulse Resp BP Pulse Ox 98.7 F 78 21 157/78 100 02/23/18 09:00 02/23/18 09:00 02/23/18 10:28 02/23/18 09:00 02/22/18 21:00 Gen: vented, poorly responsive Heart: RRR Lung: decreased breath sounds at the bases Abd: soft, nontender Ext: no edema CBC, BMP 02/23/18 08:05 02/23/18 08:05 Active Medications Acetaminophen (Tylenol Oral Solution -) 650 mg PO Q6H PRN PRN Reason: FEVER Last Admin: 02/21/18 20:47 Dose: 650 mg Enoxaparin Sodium (Lovenox -) 100 mg SQ BID [facility] Last Admin: 02/23/18 10:29 Dose: 100 mg Ferrous Sulfate (Feosol) 300 mg GT BID [facility] Last Admin: 02/23/18 10:28 Dose: 300 mg Sodium Chloride (1/2 Normal Saline) 1,000 mls @ 75 mls/hr IV ASDIR [facility] Last Admin: 02/23/18 06:56 Dose: 75 mls/hr Ertapenem 1 gm/ Sodium (Chloride) 100 mls @ 100 mls/hr IVPB DAILY [facility] PRN Reason: Protocol Last Admin: 02/23/18 10:28 Dose: 100 mls/hr Insulin Aspart (Novolog Vial Sliding Scale -) 1 vial SQ ACHS [facility] PRN Reason: Protocol Last Admin: 02/23/18 06:50 Dose: 5 units Metoprolol Tartrate (Lopressor -) 12.5 mg GT DAILY [facility] Last Admin: 02/23/18 10:28 Dose: 12.5 mg Phenytoin Sodium (Dilantin Oral Suspension -) 200 mg GT BID [facility] Last Admin: 02/23/18 10:29 Dose: 200 mg A/P Chronic Respiratory Failure h/o CVA Anoxic Encephalopathy UTI Pneumonia Sepsis Bacteremia - continue antibiotics - enteral feeds - poor candidate for weaning due to mental status, continue volume assist control - DVT prophylaxis
--- NOTE | 2018-02-23 14:55 | PN ---
Progress Note, Physician History of Present Illness: Lethargic No acute distress Low grade temp WBC remains elevated BC mixed Urine c/s ESBL Sputum mixed Vanco held ( elevated level) - Current Medication List Current Medications: Active Medications Acetaminophen (Tylenol Oral Solution -) 650 mg PO Q6H PRN PRN Reason: FEVER Last Admin: 02/21/18 20:47 Dose: 650 mg Enoxaparin Sodium (Lovenox -) 100 mg SQ BID [facility] Last Admin: 02/23/18 10:29 Dose: 100 mg Ferrous Sulfate (Feosol) 300 mg GT BID [facility] Last Admin: 02/23/18 10:28 Dose: 300 mg Sodium Chloride (1/2 Normal Saline) 1,000 mls @ 75 mls/hr IV ASDIR [facility] Last Admin: 02/23/18 06:56 Dose: 75 mls/hr Ertapenem 1 gm/ Sodium (Chloride) 100 mls @ 100 mls/hr IVPB DAILY [facility] PRN Reason: Protocol Last Admin: 02/23/18 10:28 Dose: 100 mls/hr Insulin Aspart (Novolog Vial Sliding Scale -) 1 vial SQ ACHS [facility] PRN Reason: Protocol Last Admin: 02/23/18 12:03 Dose: 5 units Metoprolol Tartrate (Lopressor -) 12.5 mg GT DAILY [facility] Last Admin: 02/23/18 10:28 Dose: 12.5 mg Phenytoin Sodium (Dilantin Oral Suspension -) 200 mg GT BID [facility] Last Admin: 02/23/18 10:29 Dose: 200 mg - Objective Vital Signs: Vital Signs Temperature 98.7 F 02/23/18 09:00 Pulse Rate 78 02/23/18 09:00 Respiratory Rate 22 02/23/18 14:28 Blood Pressure 157/78 02/23/18 09:00 O2 Sat by Pulse Oximetry (%) 100 02/22/18 21:00 Constitutional: Yes: No Distress Cardiovascular: Yes: Regular Rate and Rhythm, S1, S2 Respiratory: Yes: Diminished Gastrointestinal: Yes: Normal Bowel Sounds, Soft. No: Tenderness Edema: Yes Labs: CBC, BMP 02/23/18 08:05 02/23/18 08:05 INR, PTT INR 1.07 (0.82-1.09) 02/20/18 07:10 Fibrinogen 575.0 mg/dL (238-498) H 02/20/18 07:10 Assessment/Plan UTI/ Possible sepsis secondary to UTI +BC mixed organisms Chronic respiratory failure CVA Continue ertapenem. Hold vancomycin Contact precautions
[2018-02-23] MEDS: ACETAMINOPHEN 650 MG/20.3 ML ORAL SOLUTION (CUPS) PO PRN (17:40)
[2018-02-24] MEDS: ACETAMINOPHEN 650 MG/20.3 ML ORAL SOLUTION (CUPS) PO PRN (01:54)
[2018-02-24 02:01] VITALS: BP 133/68; PULSE 94
[2018-02-24 04:02] VITALS: TEMP 98.9
--- NOTE | 2018-02-24 05:35 | HOSP ---
Subjective - Review of Symptoms Events since last encounter: Hospitalist Encounter Notified by RN that the patient was unresponsive and without palpable pulses. Patient is a DNR Subjective: Arrived to bedside, patient is unresponsive on mechanical ventilation via trach. Patient did not respond to verbal or tactile stimulus. Patient did not respond to sternal rub. No apical or palpable pulses present. Pupils were fixed and dilated. No corneal reflex. No gag reflex. No voluntary movements noted EKG done at bedside- asystole Patient pronounced at 04:27 Cardiovascular: Yes: Other (No pulses) Neurological: Yes: Other (Unresponsive) Physical Examination Vital Signs: Vital Signs Temperature 98.9 F 02/24/18 04:01 Pulse Rate 94 H 02/24/18 02:00 Respiratory Rate 29 H 02/24/18 02:30 Blood Pressure 133/68 02/24/18 02:00 O2 Sat by Pulse Oximetry (%) 96 02/23/18 22:00 Constitutional: Yes: Obese Eyes: Yes: Other (No corneal reflex, Pupils fixed and Dilated) Cardiovascular: Yes: Other (No apical or palpable pulses) Respiratory: Yes: Mechanically Ventilated (via trach) Peripheral Pulses WNL: No Neurological: Yes: Unresponsive Labs: CBC, BMP 02/23/18 08:05 02/23/18 08:05 Current Medications Generic Name Dose Route Start Last Admin Trade Name Freq PRN Reason Stop Dose Admin Acetaminophen 650 mg 02/16/18 12:28 02/24/18 01:54 Tylenol Oral Solution - PO 650 mg Q6H PRN Administration FEVER Enoxaparin Sodium 100 mg 02/20/18 11:30 02/23/18 22:49 Lovenox - SQ 100 mg BID [facility] Administration Ferrous Sulfate 300 mg 02/21/18 22:00 02/23/18 22:49 Feosol GT 300 mg BID [facility] Administration Sodium Chloride 1,000 mls @ 75 mls/hr 02/15/18 19:45 02/23/18 22:49 1/2 Normal Saline IV 75 mls/hr ASDIR [facility] Administration Ertapenem 1 gm/ Sodium 100 mls @ 100 mls/hr 02/19/18 17:15 02/23/18 10:28 Chloride IVPB 100 mls/hr DAILY [facility] Administration Protocol Insulin Aspart 1 vial 02/15/18 22:00 02/23/18 21:01 Novolog Vial Sliding Scale - SQ 7 units ACHS [facility] Administration Protocol Metoprolol Tartrate 12.5 mg 02/16/18 10:00 02/23/18 10:28 Lopressor - GT 12.5 mg DAILY [facility] Administration Phenytoin Sodium 200 mg 02/15/18 22:00 02/23/18 22:49 Dilantin Oral Suspension - GT 200 mg BID [facility] Administration Hospitalist Encounter Assessment: This 67 yo man with h/o HTN, DM, Chol and CVA's is s/p cardiorespiratory arrest and is ventilator dependent. Patient has a DNR Plan EKG stat EKG showed Asystole Patient pronounced at 04:27 RN notified next of kin Patient to be prepared for the [facility]org[facility], after family visits RN to notify to PCP
== END 2018-02-24 07:30 | disposition expired | DRG 870 ==
LOC: JER 11:29 → JERBED 15:55 → J5S 20:01
PROVIDERS: ADMIT Family Medicine; ATTEND Family Medicine
PROC: 5A1955Z Respiratory Ventilation, Greater than 96 Consecutive Hours (ICD-10-PCS; principal; 2018-02-15)
PROC: 30233H1 Transfusion of Nonautologous Whole Blood into Peripheral Vein, Percutaneous Approach (ICD-10-PCS; 2018-02-22)
DX: A41.9 Sepsis, unspecified organism (principal); G92 Toxic encephalopathy; K83.1 Obstruction of bile duct; J95.851 Ventilator associated pneumonia; N39.0 Urinary tract infection, site not specified; Z99.11 Dependence on respirator [ventilator] status; G40.89 Other seizures; J98.11 Atelectasis; R47.01 Aphasia; J96.10 Chronic respiratory failure, unspecified whether with hypoxia or hypercapnia; G93.1 Anoxic brain damage, not elsewhere classified; I82.412 Acute embolism and thrombosis of left femoral vein; I82.431 Acute embolism and thrombosis of right popliteal vein; Z93.0 Tracheostomy status; Z86.73 Personal history of transient ischemic attack (TIA), and cerebral infarction without residual deficits; E11.9 Type 2 diabetes mellitus without complications; I10 Essential (primary) hypertension; E78.5 Hyperlipidemia, unspecified; L89.121 Pressure ulcer of left upper back, stage 1; Z79.4 Long term (current) use of insulin; R74.0 Nonspecific elevation of levels of transaminase and lactic acid dehydrogenase [LDH]; D64.9 Anemia, unspecified; B96.29 Other Escherichia coli [E. coli] as the cause of diseases classified elsewhere; Z16.12 Extended spectrum beta lactamase (ESBL) resistance; Z86.74 Personal history of sudden cardiac arrest; R94.5 Abnormal results of liver function studies; E66.9 Obesity, unspecified; Z68.32 Body mass index [BMI] 32.0-32.9, adult; Z66 Do not resuscitate; K76.0 Fatty (change of) liver, not elsewhere classified
CPT/HCPCS: 36415; 36430; 36511; 70450-TC; 71045-TC-FY; 74178-TC; 76705-TC; 78226-TC; 80053; 80185; 81003; 81015; 82550; 82553; 82607; 82728; 82803; 82962; 83540; 83550; 83605; 83735; 84100; 84484; 85025; 85027; 85384; 85610; 85730; 86140; 86850; 86900; 86901; 86922; 87040; 87070; 87077; 87086; 87186; 87205; 93005; 93010; 93970-TC; 94002; 94640; 99284-25; A9537; G0480; J1644; J7030; P9038; P9058